=== PATIENT | female | born 1965 | race Caucasian/White ===

== ENCOUNTER 2017-06-03 06:31 | Inpatient (IN) | payer MEDICARE, MEDICAID ==
[~2017-06-03] VITALS: Ht 172.7 cm; Wt 58.0 kg
[~2017-06-03 06:31] MED LIST: APLISOL ID; BETH25TA3 PO; DIAZ5 PO; DRON2.5 PO; FLORASTOR PO; LAMO25 PO; LYRI150C PO; METR-1 PO; PREV30CA36 PO; PROM25SU8 PO; QUET1TAB66 PO; TOPI100 PO; TOPI200 PO; TRAM50 PO; [UNRECOGNIZED DRUG - CODE] PO
[2017-06-03 06:32] VITALS: BP 152/73; PULSE 150; RESP 18; TEMP 100.1; O2SAT 98
[2017-06-03 06:38] VITALS: BP 115/83; PULSE 123; RESP 18; O2SAT 98
[2017-06-03] MEDS ORDERED: ONDANSETRON HCL 4 MG/2 ML VIAL IV ONE (07:00)
[2017-06-03] MEDS ORDERED: SODIUM CHLOR 0.9% 1000 ML INJ 1,000 ML IV ONE ×2 (07:00→08:45)
--- NOTE | 2017-06-03 07:18 | PD ---
HPI Chief Complaint: GI Complaint Time Seen by Provider: 06:39 Travel History International Travel<30 days: No Contact w/Intl Traveler<30days: No Traveled to known affect area: No History of Present Illness HPI The patient is a 52 year old female who presents to the [facility] emergency department with a history of abdominal pain worse in the left upper and left lower quadrant of the abdomen that began 2 months ago. The patient reports that it has been associated with diarrhea that was originally 3-4 times per day, however now the diarrhea is at hourly. She has a history of Crohn's disease. She was diagnosed 10 years ago. The patient reports that she's been to [facility] twice for these symptoms as she lives in [place], [place]. However she reports that her GI doctor does not go to that facility , therefore she was discharged home to follow-up with her GI specialist. She reports that she's been on TPN for the last 2 months without improvement. She reports that she was previously on Remicade, however it was not helping. Her last dose of Remicade was 2 months ago. [facility] wanted to discharge the patient home on steroids, however she reports that the type of steroid was too expensive. The patient reports that at this point she would like a second opinion from another reinstatement clerk. She reports that she's having nausea vomiting approximate 3 times per day. She reports that she is using IV Zofran and Phenergan. She reports that she has a doctor visit her at home for her primary care physician. She reports that she also has home health coming out to assist her. She reports that she has had over the last couple of weeks dysuria with urinary frequency and urgency. She reports that she has had C. difficile in the past, however her last test in the hospital was negative for C. difficile. The patient reports that she's been lightheaded and having syncopal events, however she has not harmed herself. She reports that she's had subjective fevers at home. The patient arrives with a temp of 100.1. On review of systems otherwise, the patient denies having any cough, congestion, neck pain, chest pain, shortness of breath, one-sided weakness, slurred speech, facial droop, difficulty with word finding ability, numbness or tingling to her extremities. LMP: Status post hysterectomy PFSH Past Medical History Narrative Medical The patient's past medical history is significant for Crohn's disease, bipolar disorder, seizure disorder, arthritis, chronic neck and back pain, migraine headaches. Arthritis: Yes Asthma: Yes Blood Disorders: No Bipolar Disorder: Yes Anxiety: Yes Depression: Yes Cancer: Yes (CERVICAL CANCER) Cardiovascular Problems: No Chemotherapy: No COPD: No Cerebrovascular Accident: No Diabetes: No Diminished Hearing: No Endocrine: No Gastrointestinal Disorders: Yes (H/O C-diff, clostridium perfringens, colitis, bladder d/o, chrohns) GERD: Yes Genitourinary: No Headaches: Yes Hepatitis: No Hiatal Hernia: No Immune Disorder: No Kidney Stones: No Musculoskeletal: Yes (Osteoperosis) Neurologic: Yes Psychiatric: Yes Reproductive: No Respiratory: Yes Migraines: No Radiation Therapy: No Renal Failure: No Seizures: Yes Sickle Cell Disease: No Sleep Apnea: No Thyroid Disease: No ?: Not Past Surgical History Narrative Surgical The patient's past surgical history is significant for multiple laparoscopies related to chronic pelvic pain, appendectomy, cholecystectomy, tonsillectomy, breast reduction. Abdominal Surgery: No AICD: No Appendectomy: No Arteriovenous Shunt: No Cardiac Surgery: No Cholecystectomy: Yes Ear Surgery: No Eye Surgery: No Genitourinary Surgery: No Gynecologic Surgery: Yes Hysterectomy: Yes (2006) Insulin Pump: No Joint Replacement: No Neurologic Surgery: Yes Oral Surgery: No Pacemaker: No Thoracic Surgery: No Tonsillectomy: Yes (CHILDHOOD) Other Surgery: Yes (BREAST REDUCTION 1999) Social History Alcohol Use: No Tobacco Use: No Substance Use: No Allergies-Medications (Allergen,Severity, Reaction): Coded Allergies: aspirin (Unverified Allergy, Severe, "ANAPHYLAXIS", 01/07/17) bupropion (Unverified Allergy, Severe, Seizures, 01/07/17) ibuprofen (Unverified Allergy, Severe, "ANAPHYLAXIS", 01/07/17) iodine (Unverified Allergy, Severe, "ANAPHYLAXIS", 01/07/17) potassium iodide (Unverified Allergy, Severe, "ANAPHYLAXIS", 01/07/17) povidone-iodine (Unverified Allergy, Severe, "ANAPHYLAXIS", 01/07/17) sodium iodide (Unverified Allergy, Severe, "ANAPHYLAXIS", 01/07/17) sodium iodide (Unverified Allergy, Severe, "ANAPHYLAXIS", 01/07/17) sumatriptan (Unverified Allergy, Severe, "ANAPHYLAXIS", 01/07/17) warfarin (Unverified Allergy, Severe, "ANAPHYLAXIS", 01/07/17) Uncoded Allergies: ALL FISH (Allergy, Severe, Anaphylaxis, 05/07/07) Reported Meds & Prescriptions Reported Meds & Active Scripts Active Ultram (Tramadol HCl) 50 Mg Tab 1 Tab PO Q6HPRN Flagyl (Metronidazole) 500 Mg Tab 1 Tab PO QID Reported Valium (Diazepam) 5 Mg Tab 5 Mg PO BID Prevacid (Lansoprazole) 30 Mg Capcr 30 Mg PO DAILY Lamictal (Lamotrigine) 25 Mg Tab 25 Mg PO TID Lyrica (Pregabalin) 150 Mg Cap 150 Mg PO BID Topamax (Topiramate) 200 Mg Tab 200 Mg PO HS Topamax (Topiramate) 100 Mg Tab 150 Mg PO DAILY Seroquel (Quetiapine Fumarate) 300 Mg Tab 400 Mg PO HS Marinol (Dronabinol) 2.5 Mg Cap 2.5 Mg PO DAILY Urecholine (Bethanechol Chloride) 25 Mg Tab 25 Mg PO TID [florastor] 250 Mg PO BID Ultram (Tramadol HCl) 50 Mg Tab 50 Mg PO Q8 FOR PAIN Avinza (Morphine Sulfate) 60 Mg Cap 60 Mg PO DAILY Phenergan (Promethazine HCl) 25 Mg Tab 25 Mg PO TIDPRN FOR NAUSEA/VOMITING [aplisol] 0.1 Ml ID YEARLY Review of Systems Except as stated in HPI: all other systems reviewed are Neg General / Constitutional: Positive: Fever Eyes: No: Visual changes HENT: No: Headaches, Congestion, Neck Stiffness Cardiovascular: Positive: Tachycardia, Syncope, No: Chest Pain or Discomfort Respiratory: No: Cough, Shortness of Breath Gastrointestinal: Positive: Nausea, Vomiting, Diarrhea, Abdominal Pain, Changes in Bowel Habits, Indigestion, No: Hematemesis, Hematochezia, Loss of Appetite Genitourinary: No: Dysuria Musculoskeletal: No: Pain Skin: No Rash Neurologic: No: Weakness, Focal Abnormalities, Coordination Problem, Change in Mentation, Slurred Speech, Sensory Disturbance Psychiatric: No: Depression Endocrine: No: Polydipsia Hematologic/Lymphatic: No: Easy Bruising Physical Exam Narrative General: The patient is a well-developed well-nourished female in no acute distress. Head and Neck exam: Head is normocephalic atraumatic. Eyes: EOMI, pupils are equal round and reactive to light. Nose: Midline septum with pink mucous membranes Mouth: Dentition unremarkable. Moist mucus membranes. Posterior oropharynx is not erythematous. No tonsillar hypertrophy. Uvula midline. Airway patent. Neck: No palpable lymphadenopathy. No nuchal rigidity. No thyromegaly. Cardiovascular: Sinus tachycardia in the 1 teens to 120s without murmurs, gallops, or rubs. No pulse deficit to the extremities on simultaneous auscultation and palpation of her radial artery. Lungs: Clear to auscultation bilaterally. No wheezes, rhonchi, or rales. Abdomen: Soft, with tenderness on palpation of the left upper and left lower quadrant of the abdomen. The patient additionally reports minimal discomfort on palpation of the right upper and right lower quadrant of the abdomen. No tenderness specifically over McBurney's point. No guarding, rebound, or rigidity. Negative Barens's sign. Normal bowel sounds are audible. Extremities: No clubbing, cyanosis, or edema. 2+ pulses in all 4 extremities. No calf tenderness on palpation. Back: No spinous process tenderness to palpation. Bilateral CVA tenderness is reported. Neurologic Exam: Grossly nonfocal. Skin Exam: No rash noted. Intact skin that is warm and dry. Data Data Last Documented VS Vital Signs Date Time Temp Pulse Resp B/P (MAP) Pulse Ox O2 Delivery O2 Flow Rate FiO2 06/03/17 06:38 123 18 115/83 (94) 98 06/03/17 06:32 100.1 Room Air Orders Orders Electrocardiogram (06/03/17 06:51) Complete Blood Count With Diff (06/03/17 06:51) Comprehensive Metabolic Panel (06/03/17 06:51) Prothrombin Time / Inr (Pt) (06/03/17 06:51) Act Partial Throm Time (Ptt) (06/03/17 06:51) Blood Culture (06/03/17 06:51) C-Reactive Protein (Crp) (06/03/17 06:51) Lipase (06/03/17 06:51) Urinalysis - C+S If Indicated (06/03/17 06:51) Westergren Sedimentation Rate (06/03/17 06:51) Magnesium (Mg) (06/03/17 06:51) Enteric Path (Stool) (06/03/17 06:51) C Diff Toxin Pcr (06/03/17 06:51) Chest, Single Ap (06/03/17 06:51) Iv Access Insert/Monitor (06/03/17 06:51) Ecg Monitoring (06/03/17 06:51) Oximetry (06/03/17 06:51) Stool Wbc (Leukocytes) (06/03/17 06:51) Lactic Acid Sepsis Protocol (06/03/17 06:51) Sodium Chlor 0.9% 1000 Ml Inj (Ns 1000 M (06/03/17 07:00) Ondansetron Inj (Zofran Inj) (06/03/17 07:00) MDM Medical Decision Making Medical Screen Exam Complete: Yes Emergency Medical Condition: Yes Medical Record Reviewed: Yes Differential Diagnosis Crohn's exacerbation, dehydration, versus electrolyte derangements, versus sepsis, versus pancreatitis Narrative Course During the course of the patients emergency department visit, the patients history, examination, and differential diagnosis were reviewed with the patient. The patient was placed on a softball umpire with oximetry and frequent blood pressure monitoring. The patient had IV access obtained and blood work sent for analysis. Blood cultures 2 were ordered. A lactic acid is ordered. The patient reports that she recently had a CT scan of the abdomen and pelvis done within the last 2 weeks at [facility] when she was admitted. The records will be obtained from this facility. The patient was initially provided normal saline 1 L IV fluid bolus, Zofran 4 mg IV. The patients laboratory studies and imaging studies are pending at the conclusion of my shift. The patient's case will be checked out to the oncoming emergency physician to disposition the patient based on the conclusion of the patient's workup. Sepsis Criteria SIRS Criteria (2 or more): Heart rate over 90 Diagnosis Primary Impression: Abdominal pain Qualified Codes: R10.84 - Generalized abdominal pain Additional Impression: History of Crohn's disease Renea Marcos MD Jun 03, 2017 07:18
--- NOTE | 2017-06-03 07:26 | RADRPT ---
EXAM DATE/TIME: 06/03/2017 07:11 [facility] COMPARISON: No previous studies available for comparison. INDICATIONS : Vomiting, diarrhea, nausea, weakness x1 month. MEDICAL HISTORY : None. SURGICAL HISTORY : None. ENCOUNTER: Initial ACUITY: 1 month PAIN SCORE: 3/10 LOCATION: Bilateral chest FINDINGS: Portable AP view of the chest demonstrates a normal-sized cardiac silhouette. Right upper extremity P ICC distal tip is in the SVC. Bilateral nipple piercings are present. No effusion, consolidation, or pneumothorax is identified. The bones and soft tissues demonstrate no acute finding. Cervical spine h ardware is present. CONCLUSION: No acute cardiopulmonary abnormality is identified. Nicholas Mayo MD on June 03, 2017 at 7:19 Board Certified Radiologist. This report was verified electronically.
[2017-06-03 08:09] LABS: AUTOMATED NEUTROPHIL # 11.1 TH/MM3 (1.8-7.7); BASOPHIL # 0.1 TH/MM3 (0-0.2); BASOPHIL % 0.4 % (0.0-2.0); EOSINOPHIL % 0.1 % (0.0-4.0); HEMATOCRIT 46.2 % (35.0-46.0); HEMOGLOBIN 15.6 GM/DL (11.6-15.3); LYMPH % 21.1 % (9.0-44.0); LYMPHOCYTE # 3.1 TH/MM3 (1.0-4.8); MEAN CELL VOLUME 93.6 FL (80.0-100.0); MEAN CORPUSCULAR HEMOGLOBIN 31.6 PG (27.0-34.0); MEAN CORPUSCULAR HGB CONC 33.8 % (32.0-36.0); MEAN PLATELET VOLUME 9.8 FL (7.0-11.0); MONO % 3.6 % (0.0-8.0); MONOCYTE # 0.5 TH/MM3 (0-0.9); NEUT % 74.8 % (16.0-70.0); PLATELET COUNT 342 TH/MM3 (150-450); RED BLOOD COUNT 4.94 MIL/MM3 (4.00-5.30); RED CELL DISTRIBUTION WIDTH 13.3 % (11.6-17.2); WHITE BLOOD COUNT 14.9 TH/MM3 (4.0-11.0)
[2017-06-03 08:17] LABS: PROTHROMBIN TIME - PATIENT 10.3 SEC (9.8-11.6)
[2017-06-03 08:29] LABS: ALBUMIN 4.9 GM/DL (3.4-5.0); AST (GOT) 33 U/L (15-37); BICARBONATE 22.2 MEQ/L (21.0-32.0); BLOOD UREA NITROGEN 29 MG/DL (7-18); CALCIUM 10.5 MG/DL (8.5-10.1); CHLORIDE 99 MEQ/L (98-107); CREATININE 1.49 MG/DL (0.50-1.00); GLOMERULAR FILTRATION RATE 37 ML/MIN (>89); GLUCOSE,RANDOM 113 MG/DL (74-106); LIPASE 252 U/L (73-393); MAGNESIUM 2.3 MG/DL (1.5-2.5); SODIUM (NA) 136 MEQ/L (136-145)
[2017-06-03 08:33] LABS: ALKALINE PHOSPHATASE 93 U/L (45-117); ALT (GPT) 51 U/L (10-53); C-REACTIVE PROTEIN LESS THAN 0.29 MG/DL (0.00-0.30); TOTAL BILIRUBIN ADULT 0.4 MG/DL (0.2-1.0)
[2017-06-03 08:52] LABS: LACTIC ACID SEPSIS PROTOCOL 4.4 mmol/L (0.4-2.0)
[2017-06-03] MEDS ORDERED: PIPERACIL-TAZO 4.5 GM PREMIX 100 ML IV STA (08:52)
[2017-06-03] MEDS ORDERED: VANCOMYCIN INJ 1,000 MG in SODIUM CHLOR 0.9% 250 ML INJ 250 ML IV STA (08:52)
[2017-06-03] MEDS ORDERED: SODIUM CHLORID 0.9% 500 ML INJ 500 ML IV ONE (09:00)
--- NOTE | 2017-06-03 11:18 | RADRPT ---
EXAM DATE/TIME: 06/03/2017 10:58 [facility] COMPARISON: No previous studies available for comparison. INDICATIONS : Abdominal pain. Diarrhea. ORAL CONTRAST: No oral contrast ingested. RADIATION DOSE: 5.08 CTDIvol (mGy) MEDICAL HISTORY : Seizures. Crohns disease. SURGICAL HISTORY : Cholecystectomy. Hysterectomy.Cervical cancer ENCOUNTER: Initial ACUITY: 1 day PAIN SCALE: 8/10 LOCATION: lower quadrant Abdomen TECHNIQUE: Volumetric scanning of the abdomen and pelvis was performed. Using automated exposure control and ad justment of the mA and/or kV according to patient size, radiation dose was kept as low as reasonably achievable to obtain optimal diagnostic quality images. DICOM format image data is available electro nically for review and comparison. FINDINGS: LOWER LUNGS: The visualized lower lungs are clear. Minimal pericardial fluid. LIVER: Homogeneous density without lesion. There is no dilation of the biliary tree. No calcified gallston es. SPLEEN: Normal size without lesion. PANCREAS: Within normal limits. KIDNEYS: Miniscule nonobstructing stone in the mid to lower pole collecting system of the right kidney. Left k idney is unremarkable. ADRENAL GLANDS: Within normal limits. VASCULAR: There is no aortic aneurysm. BOWEL/MESENTERY: Mild nonspecific fluid and gaseous distention of the stomach and bowel, mainly proximal without defin ite abnormal wall thickening or inflammatory change. No free fluid. ABDOMINAL WALL: Within normal limits. RETROPERITONEUM: There is no lymphadenopathy. BLADDER: No wall thickening or mass. REPRODUCTIVE: Uterus surgically absent. No evidence of pelvic mass or free fluid. INGUINAL: There is no lymphadenopathy or hernia. MUSCULOSKELETAL: Within normal limits for patient age. CONCLUSION: Mild nonspecific fluid and gaseous distention of bowel. Tiny nonobstructing right kidney stone. Nicholas Weeks MD on June 03, 2017 at 11:05 Board Certified Radiologist. This report was verified electronically.
--- NOTE | 2017-06-03 11:26 | PD ---
Physical Exam Narrative GENERAL: Well-nourished, well-developed patient. Uncomfortable SKIN: Warm and dry. HEAD: Normocephalic EYES: No injection or drainage. ENT: No nasal drainage noted. NECK: Supple, trachea midline. CARDIOVASCULAR: Regular rate and rhythm RESPIRATORY: No increased effort. No accessory muscle use. NEUROLOGICAL: Awake and alert. Moves extremities and sensory grossly within normal limits. Normal speech. Data Data Last Documented VS Vital Signs Date Time Temp Pulse Resp B/P (MAP) Pulse Ox O2 Delivery O2 Flow Rate FiO2 06/03/17 06:38 123 18 115/83 (94) 98 06/03/17 06:32 100.1 Room Air Orders Orders Electrocardiogram (06/03/17 06:51) Complete Blood Count With Diff (06/03/17 06:51) Comprehensive Metabolic Panel (06/03/17 06:51) Prothrombin Time / Inr (Pt) (06/03/17 06:51) Act Partial Throm Time (Ptt) (06/03/17 06:51) Blood Culture (06/03/17 06:51) C-Reactive Protein (Crp) (06/03/17 06:51) Lipase (06/03/17 06:51) Urinalysis - C+S If Indicated (06/03/17 06:51) Westergren Sedimentation Rate (06/03/17 06:51) Magnesium (Mg) (06/03/17 06:51) Enteric Path (Stool) (06/03/17 06:51) C Diff Toxin Pcr (06/03/17 06:51) Chest, Single Ap (06/03/17 06:51) Iv Access Insert/Monitor (06/03/17 06:51) Ecg Monitoring (06/03/17 06:51) Oximetry (06/03/17 06:51) Stool Wbc (Leukocytes) (06/03/17 06:51) Lactic Acid Sepsis Protocol (06/03/17 06:51) Sodium Chlor 0.9% 1000 Ml Inj (Ns 1000 M (06/03/17 07:00) Ondansetron Inj (Zofran Inj) (06/03/17 07:00) Sodium Chlor 0.9% 1000 Ml Inj (Ns 1000 M (06/03/17 08:45) Vancomycin Inj (Vancomycin Inj) (06/03/17 08:52) Piperacil-Tazo 4.5 Gm Premix (Zosyn 4.5 (06/03/17 08:52) Sodium Chlorid 0.9% 500 Ml Inj (Ns 500 M (06/03/17 09:00) Sodium Chlor 0.9% 1000 Ml Inj (Ns 1000 M (06/03/17 10:00) Admit To Inpatient (06/03/17 ) Inpatient Certification (06/03/17 ) Activity Bed Rest With Brp (06/03/17 09:41) Diet Npo Except Meds (06/03/17 Breakfast) Admit Order (Ed Use Only) (06/03/17 09:50) Ct Abd/Pel W/O Iv Contrast (06/03/17 ) Labs Laboratory Tests Test 06/03/17 07:50 White Blood Count 14.9 TH/MM3 Red Blood Count 4.94 MIL/MM3 Hemoglobin 15.6 GM/DL Hematocrit 46.2 % Mean Corpuscular Volume 93.6 FL Mean Corpuscular Hemoglobin 31.6 PG Mean Corpuscular Hemoglobin Concent 33.8 % Red Cell Distribution Width 13.3 % Platelet Count 342 TH/MM3 Mean Platelet Volume 9.8 FL Neutrophils (%) (Auto) 74.8 % Lymphocytes (%) (Auto) 21.1 % Monocytes (%) (Auto) 3.6 % Eosinophils (%) (Auto) 0.1 % Basophils (%) (Auto) 0.4 % Neutrophils # (Auto) 11.1 TH/MM3 Lymphocytes # (Auto) 3.1 TH/MM3 Monocytes # (Auto) 0.5 TH/MM3 Eosinophils # (Auto) 0.0 TH/MM3 Basophils # (Auto) 0.1 TH/MM3 CBC Comment DIFF FINAL Differential Comment Erythrocyte Sedimentation Rate 12 mm/hr Prothrombin Time 10.3 SEC Prothromb Time International Ratio 1.0 RATIO Activated Partial Thromboplast Time 26.8 SEC Stool C. difficile Toxin (PCR) NEGATIVE Stl C. difficile Toxin Epiderm 027 PRESUMPTIVE NEGATIVE Blood Urea Nitrogen 29 MG/DL Creatinine 1.49 MG/DL Random Glucose 113 MG/DL Total Protein 10.0 GM/DL Albumin 4.9 GM/DL Calcium Level 10.5 MG/DL Magnesium Level 2.3 MG/DL Alkaline Phosphatase 93 U/L Aspartate Amino Transf (AST/SGOT) 33 U/L Alanine Aminotransferase (ALT/SGPT) 51 U/L Total Bilirubin 0.4 MG/DL Sodium Level 136 MEQ/L Potassium Level 3.9 MEQ/L Chloride Level 99 MEQ/L Carbon Dioxide Level 22.2 MEQ/L Anion Gap 15 MEQ/L Estimat Glomerular Filtration Rate 37 ML/MIN Lactic Acid Level 4.4 mmol/L C-Reactive Protein LESS THAN 0.29 MG/DL Lipase 252 U/L [facility] Supervised Visit with EDWARD: No Interpretation(s) CBC & BMP Diagram 06/03/17 07:50 Total Protein 10.0 H, Albumin 4.9, Calcium Level 10.5 H, Magnesium Level 2.3, Alkaline Phosphatase 93, Aspartate Amino Transf (AST/SGOT) 33, Alanine Aminotransferase (ALT/SGPT) 51, Total Bilirubin 0.4 Last 24 hours Impressions Chest X-Ray 06/03/17 0651 Signed Impressions: Service Date/Time: Saturday, June 03, 2017 07:11 - CONCLUSION: No acute cardiopulmonary abnormality is identified. Nicholas Mayo MD CT shows no abscess Narrative Course Signed over to me to follow workup and admit. Workup shows sepsis given her leukocytosis, fever, tachycardia, elevated lactate. She was given broad- spectrum coverage with Zosyn and vancomycin. She'll be admitted to the hospital for further care. She agrees to admission, patient has had no signs of hypotension and responded to IV fluids with improvement tachycardia. We'll monitor closely in the hospital Sepsis Criteria SIRS Criteria (2 or more): Heart rate over 90, WBC > 91326, < 4000 or > 10% bands Sepsis Criteria (SIRS+source): Infect source susp/known Severe Sepsis (+one): Lactate >2 Septic Shock Criteria: Lactic acid >=4 Criteria Outcome: Meets septic shock criteria Physician Communication Physician Communication Dr. dallas agrees to admission Diagnosis Primary Impression: Sepsis Qualified Codes: A41.9 - Sepsis, unspecified organism Additional Impressions: Abdominal pain Qualified Codes: R10.84 - Generalized abdominal pain History of Crohn's disease Renal insufficiency Admitting Information Admitting Physician Requests: Admit Gris Reyes MD Jun 03, 2017 11:26
[2017-06-03] MEDS: SODIUM CHLOR 0.9% 1000 ML INJ 1,000 ML IV SCH ×2 (12:06→18:52)
[2017-06-03 12:14] VITALS: BP 147/81; PULSE 99; RESP 16; O2SAT 100
[2017-06-03] MEDS ORDERED: PANTOPRAZOLE SODIUM 40 MG VIAL IV PUSH SCH (15:00)
--- NOTE | 2017-06-03 15:46 | EKG ---
Date Performed: 06/03/2017 Time Performed: 08:05:05 PTAGE: 52 years EKG: Sinus tachyardia Nonspecific ST-T wave changes ABNORMAL RHYTHM ECG NO PREVIOUS TRACING DOCTOR: Stephen Salomon Interpretating Date/Time 06/03/2017 15:46:07
[2017-06-03 16:00] VITALS: BP 119/62; PULSE 90; RESP 18; TEMP 98; O2SAT 98
[2017-06-03] MEDS ORDERED: ONDANSETRON HCL 4 MG/2 ML VIAL IV PUSH PRN (16:15)
--- NOTE | 2017-06-03 16:35 | HHI.HP ---
HPI Service [facility] Primary Care Physician Unknown Admission Diagnosis sepsis, abdominal pain Diagnoses: (1) Sepsis Diagnosis: Principal (2) Acute kidney injury Diagnosis: Principal (3) Exacerbation of Crohn's disease Diagnosis: Principal Travel History International Travel<30 Days: No Contact w/Intl Traveler <30 Da: No Traveled to Known Affected Are: No Sepsis Criteria SIRS Criteria (2 or more): Heart rate over 90 Sepsis Criteria (SIRS+source): Infect source susp/known Severe Sepsis (+one): Lactate >2 Multiple Organ Dysfunction Syn: Evidence -2 organs failing Criteria Outcome: Meets severe sepsis criteria History of Present Illness Patient is a 52-year-old female with an extensive GI history of known Crohn's disease, GERD, history of seizure disorder last seizure episode was about more than 4 weeks ago, 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 History of bipolar disorder. came in because of GI symptoms. Patient states that for the past couple of months now since March patient has been having exacerbation of her Crohn's disease. She has workup done with GI specialist and actually had a port placed on the left chest wall sometime in March 2017 for TPN which was removed because it got infected. Another PICC line was placed in then for TPN. She has been getting TPN for nutrition. She has been undergoing treatment for Crohn's disease with Remicade and was discontinued last February by her GI specialist as she was told that it is not working. In the interim from February 24 this time patient had been admitted twice in [facility] in [place] for hydration and symptomatic management. Intermittently she was placed on steroids however patient states that she doesn' t do well with it because of her bipolar disorder. Patient states that her pain comes in cycles and she is actually very compliant with her pain medications of MS Contin 60 twice a day, hydrocodone, and fentanyl 100 g every 3 days. However for the past few days has been unable to hold down any medications because of pain and nausea. Denies any fever at home but on evaluation here had a temperature. And was tachycardic Per patient she was due for an EGD colonoscopy this coming July 2017. Patient states also history of DVT 21 involving the right lower extremity and one on the right upper extremity which sounds like PICC line related. She is on Xarelto 20 mg daily. Patient came here today because of ongoing GI symptoms. Generalized weakness and dehydration. Review of Systems Constitutional: COMPLAINS OF: Weight loss Endocrine: DENIES: Abnorml menstrual pattern, Heat/cold intolerance, Polydipsia , Polyuria, Polyphagia Eyes: DENIES: Blurred vision, Diplopia, Eye inflammation, Eye pain, Vision loss , Photosensitivity, Double Vision Ears, nose, mouth, throat: DENIES: Tinnitus, Hearing loss, Vertigo, Nasal discharge, Oral lesions, Throat pain, Hoarseness, Ear Pain, Running Nose, Epistaxis, Sinus Pain, Toothache, Odynophagia Respiratory: DENIES: Apneas, Cough, Snoring, Wheezing, Hemoptysis, Sputum production, Shortness of breath Cardiovascular: DENIES: Chest pain, Palpitations, Syncope, Dyspnea on Exertion , PND, Lower Extremity Edema, Orthopnea, Claudication Gastrointestinal: COMPLAINS OF: Abdominal pain, Diarrhea, Nausea, Vomiting Genitourinary: DENIES: Abnormal vaginal bleeding, Dysmenorrhea, Dyspareunia, Sexual dysfunction, Urinary frequency, Urinary incontinence, Urgency, Hematuria , Dysuria, Nocturia, Vaginal discharge Musculoskeletal: COMPLAINS OF: Joint pain, Back pain Integumentary: DENIES: Abnormal pigmentation, Pruritus, Rash, Nail changes, Breast masses, Breast skin changes, Nipple discharge Hematologic/lymphatic: DENIES: Bruising, Lymphadenopathy Immunologic/allergic: DENIES: Eczema, Urticaria Neurologic: DENIES: Abnormal gait, Headache, Localized weakness, Paresthesias, Seizures, Speech Problems, Tremor, Poor Balance Psychiatric: COMPLAINS OF: Mood changes Past Family Social History Past Medical History Bipolar disorder Crohn's disease Rheumatoid arthritis/osteoarthritis Chronic pain History of seizure disorder History of DVT Past Surgical History Port placement on the left side of the chest was removed March 2017 because of infection. Hysterectomy secondary to fibroids Appendectomy Cholecystectomy Cervical laminectomy/fusion surgery Reported Medications About the 90 mg daily Seroquel 200 mg daily Topamax 200 mg twice a Promethazine every 4-6 hours when necessary IV Diazepam 5 mg twice a Creon 36,000 units 4 times a week a Hydrocodone 10/325 every 4 hours when necessary Ventilating 1 puff 4 times a day Albuterol nebulizers 3 times a day Tylenol when necessary Dronabinol 10 mg daily Xarelto 20 mg daily MS Contin 60 mg daily Remicade 10 mg/kg IV Bethanechol 25 mg 4 times a day Vitamin D3 TPN Allergies: Coded Allergies: aspirin (Unverified Allergy, Severe, "ANAPHYLAXIS", 01/07/17) bupropion (Unverified Allergy, Severe, Seizures, 01/07/17) ibuprofen (Unverified Allergy, Severe, "ANAPHYLAXIS", 01/07/17) iodine (Unverified Allergy, Severe, "ANAPHYLAXIS", 01/07/17) potassium iodide (Unverified Allergy, Severe, "ANAPHYLAXIS", 01/07/17) povidone-iodine (Unverified Allergy, Severe, "ANAPHYLAXIS", 01/07/17) sodium iodide (Unverified Allergy, Severe, "ANAPHYLAXIS", 01/07/17) sodium iodide (Unverified Allergy, Severe, "ANAPHYLAXIS", 01/07/17) sumatriptan (Unverified Allergy, Severe, "ANAPHYLAXIS", 01/07/17) warfarin (Unverified Allergy, Severe, "ANAPHYLAXIS", 01/07/17) Uncoded Allergies: ALL FISH (Allergy, Severe, Anaphylaxis, 05/07/07) Family History Noncontributory Social History Denies alcohol or substance abuse History of smoking a pack a day quit a month ago Denies IV drug use Physical Exam Vital Signs Vital Signs Date Time Temp Pulse Resp B/P (MAP) Pulse Ox O2 Delivery O2 Flow Rate FiO2 06/03/17 12:14 99 16 147/81 (103) 100 Room Air 06/03/17 06:38 123 18 115/83 (94) 98 06/03/17 06:32 100.1 150 18 152/73 (99) 98 Room Air Physical Exam GENERAL: Appears dehydrated, in no apparent distress. SKIN: No rashes, ecchymoses or lesions. Cool and dry. HEAD: Atraumatic. Normocephalic. No temporal or scalp tenderness. EYES: Pupils equal round and reactive. Extraocular motions intact. No scleral icterus. No injection or drainage. ENT: Nose without bleeding, purulent drainage or septal hematoma. very dry oral mucosa NECK: Trachea midline. No JVD or lymphadenopathy. Supple, nontender, no meningeal signs. CARDIOVASCULAR: Regular rate and rhythm without murmurs, gallops, or rubs. Left chest wall with well-healed previous port site RESPIRATORY: Clear to auscultation. Breath sounds equal bilaterally. No wheezes , rales, or rhonchi. GASTROINTESTINAL: Abdomen soft, tenderness on the palpation of the periumbilical area. MUSCULOSKELETAL: Extremities without clubbing, cyanosis, or edema. No joint tenderness, effusion, or edema noted. No calf tenderness. Negative Homans sign bilaterally. Moves all extremities spontaneously no joint swelling PICC line in place in the right upper extremity NEUROLOGICAL: Awake and alert. Cranial nerves II through XII intact. Motor and sensory grossly within normal limits. Five out of 5 muscle strength in all muscle groups. Normal speech. Laboratory Laboratory Tests Test 06/03/17 07:50 White Blood Count 14.9 Red Blood Count 4.94 Hemoglobin 15.6 Hematocrit 46.2 Mean Corpuscular Volume 93.6 Mean Corpuscular Hemoglobin 31.6 Mean Corpuscular Hemoglobin Concent 33.8 Red Cell Distribution Width 13.3 Platelet Count 342 Mean Platelet Volume 9.8 Neutrophils (%) (Auto) 74.8 Lymphocytes (%) (Auto) 21.1 Monocytes (%) (Auto) 3.6 Eosinophils (%) (Auto) 0.1 Basophils (%) (Auto) 0.4 Neutrophils # (Auto) 11.1 Lymphocytes # (Auto) 3.1 Monocytes # (Auto) 0.5 Eosinophils # (Auto) 0.0 Basophils # (Auto) 0.1 CBC Comment DIFF FINAL Differential Comment Erythrocyte Sedimentation Rate 12 Prothrombin Time 10.3 Prothromb Time International Ratio 1.0 Activated Partial Thromboplast Time 26.8 Stool C. difficile Toxin (PCR) NEGATIVE Stl C. difficile Toxin Epiderm 027 PRESUMPTIVE NEGATIVE Blood Urea Nitrogen 29 Creatinine 1.49 Random Glucose 113 Total Protein 10.0 Albumin 4.9 Calcium Level 10.5 Magnesium Level 2.3 Alkaline Phosphatase 93 Aspartate Amino Transf (AST/SGOT) 33 Alanine Aminotransferase (ALT/SGPT) 51 Total Bilirubin 0.4 Sodium Level 136 Potassium Level 3.9 Chloride Level 99 Carbon Dioxide Level 22.2 Anion Gap 15 Estimat Glomerular Filtration Rate 37 Lactic Acid Level 4.4 C-Reactive Protein LESS THAN 0.29 Lipase 252 Date/Time Source Procedure Growth Status 06/03/17 07:50 Blood Peripheral Aerobic Blood Culture Pending Received 06/03/17 07:50 Blood Peripheral Anaerobic Blood Culture Pending Received 06/03/17 07:50 Stool Stool - Final NO ENTERIC PATHOGENS DETECTED BY PCR... Complete Result Diagram: 06/03/17 0750 06/03/17 0750 Imaging Last Impressions Chest X-Ray 06/03/17 0651 Signed Impressions: Service Date/Time: Saturday, June 03, 2017 07:11 - CONCLUSION: No acute cardiopulmonary abnormality is identified. Nicholas Mayo MD Abdomen/Pelvis CT 06/03/17 0000 Signed Impressions: Service Date/Time: Saturday, June 03, 2017 10:58 - CONCLUSION: Mild nonspecific fluid and gaseous distention of bowel. Tiny nonobstructing right kidney stone. MD Jessica Alonso VTE Risk Assessment Jessica VTE Risk Assessment: Mod/High Risk (score >= 2) Caprini Risk Assessment Model Point Value = 1 Point Value = 2 Point Value = 3 Point Value = 5 Age 41-60 Minor surgery BMI > 25 kg/m2 Swollen legs Varicose veins or History of unexplained or recurrent spontaneous Oral contraceptives or hormone replacement Sepsis (< 1 month) Serious lung disease, including pneumonia (< 1 month) Abnormal pulmonary function Acute myocardial infarction Congestive heart failure (< 1 month) History of inflammatory bowel disease Medical patient at bed rest Age 61-74 Arthroscopic surgery Major open surgery (> 45 min) Laparoscopic surgery (> 45 min) Malignancy Confined to bed (> 72 hours) Immobilizing plaster cast Central venous access Age >= 75 History of VTE Family history of VTE Factor V Leiden Prothrombin [id number] Lupus anticoagulant Anticardiolipin antibodies Elevated serum homocysteine Heparin-induced thrombocytopenia Other congenital or acquired thrombophilia Stroke (< 1 month) Elective arthroplasty Hip, pelvis, or leg fracture Acute spinal cord injury (< 1 month) Prophylaxis Regimen Total Risk Factor Score Risk Level Prophylaxis Regimen 0-1 Low Early ambulation 2 Moderate Order ONE of the following: *Sequential Compression Device (SCD) *Heparin 5000 units SQ BID 3-4 Higher Order ONE of the following medications: *Heparin 5000 units SQ TID *Enoxaparin/Lovenox 40 mg SQ daily (WT < 150 kg, CrCl > 30 mL/min) *Enoxaparin/Lovenox 30 mg SQ daily (WT < 150 kg, CrCl > 10-29 mL/min) *Enoxaparin/Lovenox 30 mg SQ BID (WT < 150 kg, CrCl > 30 mL/min) AND/OR *Sequential Compression Device (SCD) 5 or more Highest Order ONE of the following medications: *Heparin 5000 units SQ TID (Preferred with Epidurals) *Enoxaparin/Lovenox 40 mg SQ daily (WT < 150 kg, CrCl > 30 mL/min) *Enoxaparin/Lovenox 30 mg SQ daily (WT < 150 kg, CrCl > 10-29 mL/min) *Enoxaparin/Lovenox 30 mg SQ BID (WT < 150 kg, CrCl > 30 mL/min) AND *Sequential Compression Device (SCD) Assessment and Plan Assessment and Plan 52-year-old female presenting with chronic abdominal pain nausea or vomiting with history of Crohn's disease presenting with fever, tachcardic, elevated lactic acid level Severe sepsis from Crohn's disease exacerbation compounded by dehydration Lactic acidosis CT scan reviewed GI consult- on Remecaide.at one point. per patient her GI was planning to do a scope eventually ? Steroids. per patient she does not do well with steroids with her Bipolar disorder Aggressive IVF- start 125 cc/hr Follow cultures Start patient on Flagyl and Ciprofloxacin IV Check UA recheck lactic acid Acute kidney injury secondary to GI loss from diarrhea and poor by mouth intake Started on IV fluids - 125 cc an hour. Monitor electrolytes., renal functions History of rheumatoid arthritis/osteoarthritis History of chronic pain IV Dilaudid when necessary for now continue on MS contin once daily History of bipolar disorder Continue Cymbalta Seroquel diazepam History of seizure disorder continue Topamax History of DVT. Continue on Xarelto History of bladder dysfunction continue Bethanecol We'll consult our gas load dispatcher services for TPN assessment Discussed Condition With Patient Physician Certification 2 Midnight Certification Type: Admission for Inpatient Services Order for Inpatient Services The services are ordered in accordance with Medicare regulations or non- Medicare payer requirements, as applicable. In the case of services not specified as inpatient-only, they are appropriately provided as inpatient services in accordance with the 2-midnight benchmark. Estimated LOS (days): 3 days is the estimated time the patient will need to remain in the hospital, assuming treatment plan goals are met and no additional complications. Post-Hospital Plan: Not yet determined Problem Qualifiers (1) Sepsis: Qualified Codes: A41.9 - Sepsis, unspecified organism Aaron Perez MD Jun 03, 2017 16:34
[2017-06-03] MEDS ORDERED: fentaNYL 100 MCG/HR PATCH T-DERMAL SCH (16:45)
[2017-06-03] MEDS: ONDANSETRON HCL 4 MG/2 ML VIAL IV PUSH PRN (17:51)
[2017-06-03] MEDS: CIPROFLOXACIN 400 MG PREMIX 200 ML IV SCH (17:52)
[2017-06-03] MEDS: metroNIDAZOLE 500 MG INJ 100 ML IV SCH (17:52)
[2017-06-03] MEDS: HYDROmorphone HCL PF 2 MG/ML VIAL IV PUSH PRN ×2 (17:52→22:49)
[2017-06-03] MEDS ORDERED: lamoTRIgine 25 MG TAB PO SCH (18:00)
[2017-06-03] MEDS ORDERED: ALBUTEROL SULFATE 90 MCG/ACT HFA 8 GM INHALER INH SCH ×2 (18:00→19:00)
[2017-06-03] MEDS: PANTOPRAZOLE SODIUM 40 MG VIAL IV PUSH SCH (18:51)
[2017-06-03] MEDS: BETHANECHOL CHL 25 MG TAB PO SCH (18:52)
[2017-06-03 20:00] VITALS: BP 148/80; PULSE 83; RESP 20; TEMP 98.7; O2SAT 97
[2017-06-03] MEDS ORDERED: LACTOBACILLUS ACIDOPHILUS TAB PO SCH (21:00)
[2017-06-03] MEDS ORDERED: fentaNYL 50 MCG/HR PATCH T-DERMAL ONE (21:00)
[2017-06-03] MEDS: TOPIRAMATE 200 MG TAB PO SCH (21:00)
[2017-06-03] MEDS: QUEtiapine FUMARATE 200 MG TAB PO SCH (21:00)
[2017-06-03] MEDS: LACTOBACILLUS ACIDOPHILUS TAB PO SCH (21:00)
[2017-06-03] MEDS: DIAZEPAM 5 MG TAB PO SCH (21:02)
[2017-06-03] MEDS: PREGABALIN 75 MG CAP PO SCH (21:03)
[2017-06-03] MEDS: lamoTRIgine 25 MG TAB PO SCH (22:16)
[2017-06-04] VITALS: BP 142/67; PULSE 84; RESP 19; TEMP 97.7; O2SAT 96
[2017-06-04] MEDS: metroNIDAZOLE 500 MG INJ 100 ML IV SCH ×3 (00:44→17:11)
[2017-06-04] MEDS: ONDANSETRON HCL 4 MG/2 ML VIAL IV PUSH PRN ×4 (00:44→18:37)
[2017-06-04] MEDS: SODIUM CHLOR 0.9% 1000 ML INJ 1,000 ML IV SCH ×2 (00:45→08:05)
[2017-06-04 04:00] VITALS: BP 133/61; PULSE 80; RESP 18; TEMP 98.1; O2SAT 97
[2017-06-04] MEDS: CIPROFLOXACIN 400 MG PREMIX 200 ML IV SCH ×2 (04:30→17:11)
[2017-06-04] MEDS: HYDROmorphone HCL PF 2 MG/ML VIAL IV PUSH PRN ×5 (04:30→23:00)
[2017-06-04 05:22] LABS: BILIRUBIN, URINE NEG (NEG); BLOOD, URINE SMALL (NEG); GLUCOSE,URINE NEG (NEG); KETONE, URINE TRACE mg/dL (NEG); MUCUS URINE FEW /lpf (OCC); NITRITE,URINE NEG (NEG); SQUAMOUS EPITHELIAL CELL URINE 1 /hpf (0-5); URINE COLOR YELLOW (YELLW/STRAW); URINE LEUKOCYTE ESTERASE TRACE (NEG)
[2017-06-04] MEDS: ALBUTEROL SULFATE 90 MCG/ACT HFA 8 GM INHALER INH SCH ×5 (05:31→23:00)
[2017-06-04 08:00] VITALS: BP 133/66; PULSE 66; RESP 18; TEMP 98.1; O2SAT 99
[2017-06-04] MEDS ORDERED: PANTOPRAZOLE SODIUM 40 MG VIAL IV PUSH SCH (08:00)
[2017-06-04] MEDS: lamoTRIgine 25 MG TAB PO SCH ×3 (08:04→17:12)
[2017-06-04] MEDS: DULoxetine HCl DR 30 MG CAP PO SCH (08:04)
[2017-06-04] MEDS: LACTOBACILLUS ACIDOPHILUS TAB PO SCH ×2 (08:04→21:00)
[2017-06-04] MEDS: DULoxetine HCl DR 60 MG CAP PO SCH (08:04)
[2017-06-04] MEDS: BETHANECHOL CHL 25 MG TAB PO SCH ×3 (08:05→17:12)
[2017-06-04] MEDS: PREGABALIN 75 MG CAP PO SCH ×2 (08:05→21:00)
[2017-06-04] MEDS: RIVAROXABAN 20 MG TAB PO SCH (08:05)
[2017-06-04] MEDS: DIAZEPAM 5 MG TAB PO SCH ×2 (08:05→21:00)
[2017-06-04] MEDS: DRONABINOL 2.5 MG CAP PO SCH (08:05)
[2017-06-04] MEDS: TOPIRAMATE 25 MG TAB PO SCH (08:05)
[2017-06-04] MEDS: MORPHINE SULFATE 60 MG CONTROLLED RELEASE TAB PO SCH (08:05)
[2017-06-04 08:09] LABS: AUTOMATED NEUTROPHIL # 3.6 TH/MM3 (1.8-7.7); BASOPHIL % 0.4 % (0.0-2.0); EOSINOPHIL # 0.3 TH/MM3 (0-0.4); EOSINOPHIL % 2.7 % (0.0-4.0); HEMATOCRIT 34.9 % (35.0-46.0); HEMOGLOBIN 11.7 GM/DL (11.6-15.3); LYMPH % 52.5 % (9.0-44.0); MEAN CELL VOLUME 95.7 FL (80.0-100.0); MEAN CORPUSCULAR HGB CONC 33.4 % (32.0-36.0); MEAN PLATELET VOLUME 10.1 FL (7.0-11.0); MONO % 6.5 % (0.0-8.0); MONOCYTE # 0.6 TH/MM3 (0-0.9); NEUT % 37.9 % (16.0-70.0); PLATELET COUNT 232 TH/MM3 (150-450); RED BLOOD COUNT 3.65 MIL/MM3 (4.00-5.30); RED CELL DISTRIBUTION WIDTH 13.5 % (11.6-17.2); WHITE BLOOD COUNT 9.6 TH/MM3 (4.0-11.0)
[2017-06-04 08:32] LABS: BICARBONATE 22.8 MEQ/L (21.0-32.0); CALCIUM 8.2 MG/DL (8.5-10.1); CREATININE 0.79 MG/DL (0.50-1.00)
[2017-06-04] MEDS ORDERED: LACTOBACILLUS ACIDOPHILUS TAB PO SCH (09:00)
[2017-06-04] MEDS ORDERED: ALTEPLASE RECOMBINANT 2 MG VIAL INTRACATH ONE ×2 (09:15→15:00)
--- NOTE | 2017-06-04 10:15 | PD.CONS ---
HPI History of Present Illness This is a 52 year old female with Crohn's, bipolar disorder, seizure disorder, on pain mgmt who presented with severe abd pain, n/v. This particular episode started in March. She was seen at [facility] in [place] and found to have high number rifiximab antibodies, advised to f/u with her GI Dr Luna, and limit opioids. She tells me she was recently diagnosed with gastroparesis per positive GES, not on any meds for this. She had a port and was taking TPN but this port became infected in March and was removed adn she was treated with abx. She says she was checked for c diff and it was negative. She had EGD and colonoscopy was 1-[address] Luna, colonoscopy suggested improvement in Crohn's and the EGD did not indicate improvement in her Crohn's. She says she cannot have steroids b/c they affect her bipolar meds and make her "loopy." She was to start entocort per her GI but her insurance will not pay for it. (Magdalena Pérez) PFSH Past Medical History Bipolar disorder Crohn's disease Rheumatoid arthritis/osteoarthritis Chronic pain History of seizure disorder History of DVT Past Surgical History Port placement on the left side of the chest was removed March 2017 because of infection. Hysterectomy secondary to fibroids Appendectomy Cholecystectomy Cervical laminectomy/fusion surgery (Magdalena Pérez) Coded Allergies: aspirin (Unverified Allergy, Severe, "ANAPHYLAXIS", 01/07/17) bupropion (Unverified Allergy, Severe, Seizures, 01/07/17) ibuprofen (Unverified Allergy, Severe, "ANAPHYLAXIS", 01/07/17) iodine (Unverified Allergy, Severe, "ANAPHYLAXIS", 01/07/17) potassium iodide (Unverified Allergy, Severe, "ANAPHYLAXIS", 01/07/17) povidone-iodine (Unverified Allergy, Severe, "ANAPHYLAXIS", 01/07/17) sodium iodide (Unverified Allergy, Severe, "ANAPHYLAXIS", 01/07/17) sodium iodide (Unverified Allergy, Severe, "ANAPHYLAXIS", 01/07/17) sumatriptan (Unverified Allergy, Severe, "ANAPHYLAXIS", 01/07/17) warfarin (Unverified Allergy, Severe, "ANAPHYLAXIS", 01/07/17) Uncoded Allergies: ALL FISH (Allergy, Severe, Anaphylaxis, 05/07/07) Family History Noncontributory Social History Denies alcohol or substance abuse History of smoking a pack a day quit a month ago Denies IV drug use (Magdalena Pérez) Review of Systems Constitutional: DENIES: Diaphoretic episodes Endocrine: DENIES: Polydipsia Eyes: DENIES: Blurred vision Ears, nose, mouth, throat: DENIES: Hearing loss Respiratory: DENIES: Cough Cardiovascular: DENIES: Chest pain Gastrointestinal: COMPLAINS OF: Abdominal pain, Diarrhea, Nausea, Vomiting, DENIES: Black stools, Bloody stools, Constipation, Hematemesis Genitourinary: DENIES: Hematuria Musculoskeletal: DENIES: Muscle aches Integumentary: DENIES: Abnormal pigmentation Hematologic/lymphatic: DENIES: Bruising Immunologic/allergic: DENIES: Eczema Neurologic: DENIES: Abnormal gait Psychiatric: DENIES: Confusion (Magdalena Pérez) GI Exam Vitals I&O Vital Signs Date Time Temp Pulse Resp B/P (MAP) Pulse Ox O2 Delivery O2 Flow Rate FiO2 06/04/17 08:34 16 06/04/17 08:00 98.1 66 18 133/66 (88) 99 06/04/17 04:00 98.1 80 18 133/61 (85) 97 06/04/17 00:00 97.7 84 19 142/67 (92) 96 06/03/17 20:00 98.7 83 20 148/80 (102) 97 06/03/17 16:00 98.0 90 18 119/62 (81) 98 06/03/17 12:14 99 16 147/81 (103) 100 Room Air I/O 06/03/17 06/03/17 06/03/17 06/04/17 06/04/17 06/04/17 07:00 15:00 23:00 07:00 15:00 23:00 Intake Total 2850 ml 1300 ml Balance 2850 ml 1300 ml Intake IV Total 2850 ml 1300 ml # Voids 1 Imaging Last Impressions Chest X-Ray 06/03/17 0651 Signed Impressions: Service Date/Time: Saturday, June 03, 2017 07:11 - CONCLUSION: No acute cardiopulmonary abnormality is identified. Nicholas Mayo MD Abdomen/Pelvis CT 06/03/17 0000 Signed Impressions: Service Date/Time: Saturday, June 03, 2017 10:58 - CONCLUSION: Mild nonspecific fluid and gaseous distention of bowel. Tiny nonobstructing right kidney stone. Nicholas Weeks MD Laboratory Test 06/03/17 16:52 06/04/17 05:13 06/04/17 07:29 Lactic Acid Level 1.3 mmol/L Urine Color YELLOW Urine Turbidity CLEAR Urine pH 5.0 Urine Specific Mascot 1.017 Urine Protein TRACE mg/dL Urine Glucose (UA) NEG mg/dL Urine Ketones TRACE mg/dL Urine Occult Blood SMALL Urine Nitrite NEG Urine Bilirubin NEG Urine Urobilinogen LESS THAN 2.0 MG/DL Urine Leukocyte Esterase TRACE Urine RBC 4 /hpf Urine WBC 2 /hpf Urine Squamous Epithelial Cells 1 /hpf Urine Mucus FEW /lpf Microscopic Urinalysis Comment CULT NOT INDICATED White Blood Count 9.6 TH/MM3 Red Blood Count 3.65 MIL/MM3 Hemoglobin 11.7 GM/DL Hematocrit 34.9 % Mean Corpuscular Volume 95.7 FL Mean Corpuscular Hemoglobin 32.0 PG Mean Corpuscular Hemoglobin Concent 33.4 % Red Cell Distribution Width 13.5 % Platelet Count 232 TH/MM3 Mean Platelet Volume 10.1 FL Neutrophils (%) (Auto) 37.9 % Lymphocytes (%) (Auto) 52.5 % Monocytes (%) (Auto) 6.5 % Eosinophils (%) (Auto) 2.7 % Basophils (%) (Auto) 0.4 % Neutrophils # (Auto) 3.6 TH/MM3 Lymphocytes # (Auto) 5.0 TH/MM3 Monocytes # (Auto) 0.6 TH/MM3 Eosinophils # (Auto) 0.3 TH/MM3 Basophils # (Auto) 0.0 TH/MM3 CBC Comment DIFF FINAL Differential Comment Blood Urea Nitrogen 22 MG/DL Creatinine 0.79 MG/DL Random Glucose 83 MG/DL Calcium Level 8.2 MG/DL Sodium Level 140 MEQ/L Potassium Level 3.5 MEQ/L Chloride Level 108 MEQ/L Carbon Dioxide Level 22.8 MEQ/L Anion Gap 9 MEQ/L Estimat Glomerular Filtration Rate 77 ML/MIN Date/Time Source Procedure Growth Status 06/03/17 07:50 Blood Peripheral Aerobic Blood Culture Pending Received 06/03/17 07:50 Blood Peripheral Anaerobic Blood Culture Pending Received 06/03/17 07:50 Stool Stool Stool Pus (LONNIE) Pending Received Physical Examination HEENT: PERRL; normocephalic; atraumatic; no jaundice. CHEST: CTA CARDIAC: RRR ABDOMEN: Soft,mildly distended, diffusely tender; no hepatosplenomegaly; bowel sounds are present in all four quadrants. EXTREMITIES: No clubbing, cyanosis, or edema. SKIN: Normal; no rash; no jaundice. CIRCUIT WALKER: No focal deficits; alert and oriented times three. (Magdalena Pérez) Assessment and Plan Plan ASSESSMENT - nausea, vomiting, abd pain, watery diarrhea - prob Crohn's exacerbation, since Mar 2017. on remicade, labwork from [facility] in April 2017 indicates increase antibodies to rifiximab. WAs on TPN via port which became infected. neg for c diff and enteric pathogens. She is allergic to aspirin and says steroids affect her bipolar meds and the last time she had steroids (doesn't know how much or what kind) she was corea acted. last dose remicade 03/13 but no further doses planned d/t resistance PLAN - consider entocort but unfortunately not available here - continue probiotics - will need to f/u with her GI after d/c This pt seen by myself and Dr Sumner and this note is written on her behalf (Magdalena Pérez) Physician Comments seen, examined agree with above egd/colonoscopy on Friday obtain records dr luna consult corrugator helper for tpn start tpn for now we will discuss with pharmacy about potentially getting Entocort/Entyvio states she is unable to take her bipolar medications -consider consulting psych- we will leave it up to primary (Shae Sumner MD) Magdalena Pérez Jun 04, 2017 10:15 Shae Sumner MD Jun 04, 2017 17:41
[2017-06-04 12:00] VITALS: BP 125/64; PULSE 88; RESP 18; TEMP 98; O2SAT 99
--- NOTE | 2017-06-04 13:38 | HHI.PR ---
Subjective Remarks Follow-up sepsis, nausea/vomiting. The patient continues to have nausea and dry heaves. Denies cough, dyspnea. Objective Vitals Vital Signs Date Time Temp Pulse Resp B/P (MAP) Pulse Ox O2 Delivery O2 Flow Rate FiO2 06/04/17 12:00 98.0 88 18 125/64 (84) 99 06/04/17 08:34 16 06/04/17 08:00 98.1 66 18 133/66 (88) 99 06/04/17 04:00 98.1 80 18 133/61 (85) 97 06/04/17 00:00 97.7 84 19 142/67 (92) 96 06/03/17 20:00 98.7 83 20 148/80 (102) 97 06/03/17 16:00 98.0 90 18 119/62 (81) 98 I/O 06/03/17 06/03/17 06/03/17 06/04/17 06/04/17 06/04/17 07:00 15:00 23:00 07:00 15:00 23:00 Intake Total 2850 ml 1300 ml Balance 2850 ml 1300 ml Intake IV Total 2850 ml 1300 ml # Voids 1 Result Diagram: 06/04/17 0729 06/04/17 0729 Imaging Last Impressions Chest X-Ray 06/03/17 0651 Signed Impressions: Service Date/Time: Saturday, June 03, 2017 07:11 - CONCLUSION: No acute cardiopulmonary abnormality is identified. Nichoals Mayo MD Abdomen/Pelvis CT 06/03/17 0000 Signed Impressions: Service Date/Time: Saturday, June 03, 2017 10:58 - CONCLUSION: Mild nonspecific fluid and gaseous distention of bowel. Tiny nonobstructing right kidney stone. Nicholas Weeks MD Objective Remarks General: No acute distress. Appears uncomfortable. Heart: Regular rate and rhythm. No murmur. Lungs: Clear to auscultation bilaterally. No wheezes, rales, or rhonchi. Breathing is nonlabored. Abdomen: Soft, mild diffuse tenderness without rebound or guarding, mildly distended. Extremities: No lower extremity edema. Psych: Alert and oriented. Procedures None Urinary Catheter: No Vascular Central Line Catheter: No A/P Problem List: (1) Sepsis ICD Code: A41.9 - Sepsis, unspecified organism Status: Acute (2) Acute kidney injury ICD Code: N17.9 - Acute kidney failure, unspecified (3) Exacerbation of Crohn's disease ICD Code: K50.90 - Crohn's disease, unspecified, without complications Assessment and Plan 1. Severe sepsis: Likely GI source. Patient continues to have nausea and vomiting. Sepsis has resolved. 2. Lactic acidosis: Resolved. 3. Acute kidney injury: Improving. Continue IV fluids. 4. Nausea/vomiting: Patient has been having nausea and vomiting for the past few months. She has been on TPN. Dietary consult to assist with TPN. Continue antibiotics. Appreciate GI recommendations. 5. Crohn's disease, exacerbation: Appreciate GI recommendations. Entocort recommended, but not available at this time. 6. Chronic pain: Continue pain medication. 7. History of bipolar disorder: Continue Cymbalta, Seroquel, diazepam. 8. History of seizure disorder: Continue Topamax. 9. History of DVT: Continue Xarelto. 10. History of bladder dysfunction: Continue bethanechol. Discharge Planning Pending clinical improvement. Problem Qualifiers (1) Sepsis: Qualified Codes: A41.9 - Sepsis, unspecified organism Ron Reynaga MD Jun 04, 2017 13:38
[2017-06-04] MEDS: D5-NS + KCL 20 MEQ INJ 1,000 ML IV SCH ×2 (13:56→21:49)
[2017-06-04 16:00] VITALS: BP 148/76; PULSE 80; RESP 18; TEMP 96.8; O2SAT 99
[2017-06-04] MEDS: PANTOPRAZOLE SODIUM 40 MG VIAL IV PUSH SCH (17:15)
[2017-06-04 20:30] VITALS: BP 134/63; PULSE 84; RESP 18; TEMP 98.9; O2SAT 99
[2017-06-04] MEDS: QUEtiapine FUMARATE 200 MG TAB PO SCH (21:00)
[2017-06-04] MEDS: TOPIRAMATE 200 MG TAB PO SCH (21:00)
[2017-06-04] MEDS: CLINIMIX 5/25 (Custom) 2000 mL- >42 mls/hr IV-CENTRAL SCH ×9 (21:47)
[2017-06-04] MEDS: FAT EMULSION 20% INJ 250 ML (@10 mls/hr) IV-CENTRAL SCH (21:47)
[2017-06-05] MEDS: metroNIDAZOLE 500 MG INJ 100 ML IV SCH ×3 (00:40→16:13)
[2017-06-05] MEDS: ONDANSETRON HCL 4 MG/2 ML VIAL IV PUSH PRN ×2 (00:40→06:33)
[2017-06-05 01:03] VITALS: BP 160/66; PULSE 82; RESP 18; TEMP 97.5; O2SAT 98
[2017-06-05] MEDS: HYDROmorphone HCL PF 2 MG/ML VIAL IV PUSH PRN ×6 (02:28→21:42)
[2017-06-05] MEDS: CIPROFLOXACIN 400 MG PREMIX 200 ML IV SCH ×2 (04:22→16:13)
[2017-06-05 04:50] LABS: AUTOMATED NEUTROPHIL # 2.9 TH/MM3 (1.8-7.7); BASOPHIL # 0.1 TH/MM3 (0-0.2); BASOPHIL % 0.8 % (0.0-2.0); EOSINOPHIL # 0.3 TH/MM3 (0-0.4); EOSINOPHIL % 4.2 % (0.0-4.0); HEMATOCRIT 26.6 % (35.0-46.0); HEMOGLOBIN 9.1 GM/DL (11.6-15.3); LYMPH % 47.4 % (9.0-44.0); LYMPHOCYTE # 3.4 TH/MM3 (1.0-4.8); MEAN CELL VOLUME 95.7 FL (80.0-100.0); MEAN CORPUSCULAR HEMOGLOBIN 32.7 PG (27.0-34.0); MEAN CORPUSCULAR HGB CONC 34.2 % (32.0-36.0); MONO % 7.6 % (0.0-8.0); MONOCYTE # 0.6 TH/MM3 (0-0.9); PLATELET COUNT 191 TH/MM3 (150-450); RED BLOOD COUNT 2.78 MIL/MM3 (4.00-5.30); RED CELL DISTRIBUTION WIDTH 13.2 % (11.6-17.2); WHITE BLOOD COUNT 7.2 TH/MM3 (4.0-11.0)
[2017-06-05 05:00] VITALS: BP 135/63; PULSE 83; RESP 18; TEMP 98.2; O2SAT 99
[2017-06-05] MEDS: ALBUTEROL SULFATE 90 MCG/ACT HFA 8 GM INHALER INH SCH ×3 (06:00→16:14)
[2017-06-05] MEDS: LACTOBACILLUS ACIDOPHILUS TAB PO SCH ×2 (07:30→21:00)
[2017-06-05] MEDS: DULoxetine HCl DR 30 MG CAP PO SCH (07:30)
[2017-06-05] MEDS: lamoTRIgine 25 MG TAB PO SCH ×3 (07:30→16:14)
[2017-06-05] MEDS: DULoxetine HCl DR 60 MG CAP PO SCH (07:30)
[2017-06-05] MEDS: RIVAROXABAN 20 MG TAB PO SCH (07:31)
[2017-06-05] MEDS: MORPHINE SULFATE 60 MG CONTROLLED RELEASE TAB PO SCH (07:31)
[2017-06-05] MEDS: DIAZEPAM 5 MG TAB PO SCH ×2 (07:31→21:00)
[2017-06-05] MEDS: TOPIRAMATE 25 MG TAB PO SCH (07:31)
[2017-06-05] MEDS: BETHANECHOL CHL 25 MG TAB PO SCH ×3 (07:31→16:14)
[2017-06-05] MEDS: PREGABALIN 75 MG CAP PO SCH ×2 (07:31→21:00)
[2017-06-05] MEDS: DRONABINOL 2.5 MG CAP PO SCH (07:31)
[2017-06-05] MEDS: D5-NS + KCL 20 MEQ INJ 1,000 ML IV SCH ×2 (07:32→16:15)
[2017-06-05 08:37] VITALS: BP 140/65; PULSE 88; RESP 18; TEMP 98.3; O2SAT 99
[2017-06-05 09:55] LABS: CALCIUM 7.2 MG/DL (8.5-10.1); CREATININE 0.65 MG/DL (0.50-1.00); MAGNESIUM 1.7 MG/DL (1.5-2.5); PHOSPHORUS 3.2 MG/DL (2.5-4.9)
[2017-06-05] MEDS ORDERED: ONDANSETRON HCL 4 MG/2 ML VIAL IV PUSH PRN (10:45)
[2017-06-05 10:46] LABS: CALCIUM-PROTEIN CORRECTED 7.9 MG/DL (8.5-10.1); TOTAL PROTEIN 5.8 GM/DL (6.4-8.2)
--- NOTE | 2017-06-05 11:02 | HHI.PR ---
Subjective Remarks Follow up nausea/vomiting, abdominal pain. Patient reports her reflux is better , but she still has significant nausea/vomiting. Objective Vitals Vital Signs Date Time Temp Pulse Resp B/P (MAP) Pulse Ox O2 Delivery O2 Flow Rate FiO2 06/05/17 10:47 16 06/05/17 08:37 98.3 88 18 140/65 (90) 99 06/05/17 05:00 98.2 83 18 135/63 (87) 99 06/05/17 01:03 97.5 82 18 160/66 (97) 98 06/04/17 20:30 98.9 84 18 134/63 (86) 99 06/04/17 16:00 96.8 80 18 148/76 (100) 99 06/04/17 12:00 98.0 88 18 125/64 (84) 99 I/O 06/04/17 06/04/17 06/04/17 06/05/17 06/05/17 06/05/17 07:00 15:00 23:00 07:00 15:00 23:00 Intake Total 1300 ml 867 ml 100 ml Balance 1300 ml 867 ml 100 ml Intake IV Total 1300 ml 867 ml 100 ml # Voids 2 2 # Bowel Movements 1 2 Result Diagram: 06/05/17 0420 06/05/17 0849 Imaging Last Impressions Chest X-Ray 06/03/17 0651 Signed Impressions: Service Date/Time: Saturday, June 03, 2017 07:11 - CONCLUSION: No acute cardiopulmonary abnormality is identified. Nicholas Mayo MD Abdomen/Pelvis CT 06/03/17 0000 Signed Impressions: Service Date/Time: Saturday, June 03, 2017 10:58 - CONCLUSION: Mild nonspecific fluid and gaseous distention of bowel. Tiny nonobstructing right kidney stone. Nicholas Weeks MD Objective Remarks General: No acute distress. Appears more comfortable today. Heart: Regular rate and rhythm. No murmur. Lungs: Clear to auscultation bilaterally. No wheezes, rales, or rhonchi. Breathing is nonlabored. Abdomen: Soft, mild diffuse tenderness without rebound or guarding, mildly distended. Extremities: No lower extremity edema. Psych: Alert and oriented. Procedures None Urinary Catheter: No Vascular Central Line Catheter: No A/P Problem List: (1) Sepsis ICD Code: A41.9 - Sepsis, unspecified organism Status: Acute (2) Acute kidney injury ICD Code: N17.9 - Acute kidney failure, unspecified (3) Exacerbation of Crohn's disease ICD Code: K50.90 - Crohn's disease, unspecified, without complications Assessment and Plan 1. Severe sepsis: Likely GI source. Patient continues to have nausea and vomiting. Sepsis has resolved. 2. Lactic acidosis: Resolved. 3. Acute kidney injury: Improving. Continue IV fluids. 4. Nausea/vomiting: Patient has been having nausea and vomiting for the past few months. Continue TPN. Continue anti-emetics. Appreciate GI recommendations. 5. Crohn's disease, exacerbation: Appreciate GI recommendations. Entocort recommended, but not available at this time. 6. Chronic pain: Continue pain medication. 7. History of bipolar disorder: Continue Cymbalta, Seroquel, diazepam. 8. History of seizure disorder: Continue Topamax. 9. History of DVT: Continue Xarelto. 10. History of bladder dysfunction: Continue bethanechol. 11. Anemia: No apparent bleeding. Monitor H/H. Discharge Planning Pending clinical improvement. Problem Qualifiers (1) Sepsis: Qualified Codes: A41.9 - Sepsis, unspecified organism Ron Reynaga MD Jun 05, 2017 11:02
[2017-06-05] MEDS: ONDANSETRON INJ 8 MG in DEXTROSE 5% IN WATER INJ 50 ML IV PRN ×4 (12:06→21:01)
[2017-06-05 12:43] VITALS: BP 130/59; PULSE 91; RESP 18; TEMP 98.7; O2SAT 100
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
--- NOTE | 2017-06-05 15:27 | HHI.GIFU ---
Subjective Remarks Pt resting in bed. Says protonix helped her reflux greatly. Still with n/v, abd pain. Dilaudid helping pain.. (Magdalena Pérez) Objective Vitals I&O Vital Signs Date Time Temp Pulse Resp B/P (MAP) Pulse Ox O2 Delivery O2 Flow Rate FiO2 06/05/17 12:43 98.7 91 18 130/59 (82) 100 06/05/17 10:47 16 06/05/17 08:37 98.3 88 18 140/65 (90) 99 06/05/17 05:00 98.2 83 18 135/63 (87) 99 06/05/17 01:03 97.5 82 18 160/66 (97) 98 06/04/17 20:30 98.9 84 18 134/63 (86) 99 06/04/17 16:00 96.8 80 18 148/76 (100) 99 I/O 06/04/17 06/04/17 06/04/17 06/05/17 06/05/17 06/05/17 07:00 15:00 23:00 07:00 15:00 23:00 Intake Total 1300 ml 867 ml 100 ml Balance 1300 ml 867 ml 100 ml Intake IV Total 1300 ml 867 ml 100 ml # Voids 2 2 # Bowel Movements 1 2 Laboratory Laboratory Tests Test 06/05/17 04:20 06/05/17 08:49 White Blood Count 7.2 Red Blood Count 2.78 Hemoglobin 9.1 Hematocrit 26.6 Mean Corpuscular Volume 95.7 Mean Corpuscular Hemoglobin 32.7 Mean Corpuscular Hemoglobin Concent 34.2 Red Cell Distribution Width 13.2 Platelet Count 191 Mean Platelet Volume 10.0 Neutrophils (%) (Auto) 40.0 Lymphocytes (%) (Auto) 47.4 Monocytes (%) (Auto) 7.6 Eosinophils (%) (Auto) 4.2 Basophils (%) (Auto) 0.8 Neutrophils # (Auto) 2.9 Lymphocytes # (Auto) 3.4 Monocytes # (Auto) 0.6 Eosinophils # (Auto) 0.3 Basophils # (Auto) 0.1 CBC Comment DIFF FINAL Differential Comment Blood Urea Nitrogen 10 Creatinine 0.65 Random Glucose 364 Total Protein 5.8 Calcium Level 7.2 Phosphorus Level 3.2 Magnesium Level 1.7 Sodium Level 136 Potassium Level 3.5 Chloride Level 103 Carbon Dioxide Level 24.0 Anion Gap 9 Estimat Glomerular Filtration Rate 96 Protein Corrected Calcium 7.9 Date/Time Source Procedure Growth Status 06/03/17 07:50 Blood Peripheral Aerobic Blood Culture - Preliminary NO GROWTH IN 2 DAYS Resulted 06/03/17 07:50 Blood Peripheral Anaerobic Blood Culture - Preliminary NO GROWTH IN 2 DAYS Resulted 06/03/17 07:50 Stool Stool Stool Pus (LONNIE) - Final NO WBC'S SEEN Complete Imaging Last Impressions Chest X-Ray 06/03/17 0651 Signed Impressions: Service Date/Time: Saturday, June 03, 2017 07:11 - CONCLUSION: No acute cardiopulmonary abnormality is identified. Nicholas Mayo MD Abdomen/Pelvis CT 06/03/17 0000 Signed Impressions: Service Date/Time: Saturday, June 03, 2017 10:58 - CONCLUSION: Mild nonspecific fluid and gaseous distention of bowel. Tiny nonobstructing right kidney stone. Nicholas Weeks MD Physical Exam HEENT: PERRL; normocephalic; atraumatic; no jaundice. CHEST: CTA CARDIAC: RRR ABDOMEN: Soft, mildly distended, diffuse TTP; no hepatosplenomegaly; bowel sounds are present in all four quadrants. EXTREMITIES: No clubbing, cyanosis, or edema. SKIN: Normal; no rash; no jaundice. SAFETY SPECIALIST: No focal deficits; alert and oriented times three. (Magdalena Pérez [facility]) Assessment and Plan Plan ASSESSMENT - nausea, vomiting, abd pain, watery diarrhea - prob Crohn's exacerbation, since Mar 2017. on remicade, labwork from [facility] in April 2017 indicates increase antibodies to rifiximab. WAs on TPN via port which became infected. neg for c diff and enteric pathogens. She is allergic to aspirin and says steroids affect her bipolar meds and the last time she had steroids (doesn't know how much or what kind) she was corea acted. last dose remicade 03/13 but no further doses planned d/t resistance 06/05/16 - going for EGD/colonoscopy tomorrow. psych consult appreciated d/t vomiting bipolar meds. PPI helping with reflux but still with n/v, abd pain. PLAN - EGD/colonoscopy in am - obtain consent - NPO, on TPN - dulcolax prep - continue probiotics - cont PPI - will discuss entocort w/ pharm - will need to f/u with her GI after d/c This pt seen by myself and Dr Sumner and this note is written on her behalf (Magdalena Pérez) Physician Comments seen, examined agree with above egd/colon in am (Shae Sumner MD) Magdalena Pérez Jun 05, 2017 15:27 Shae Sumner MD Jun 05, 2017 16:54
[2017-06-05] MEDS: PANTOPRAZOLE SODIUM 40 MG VIAL IV PUSH SCH (16:14)
[2017-06-05 16:59] VITALS: BP 136/61; PULSE 87; RESP 18; TEMP 99; O2SAT 100
[2017-06-05] MEDS ORDERED: MAGNESIUM CITRATE SOLN 300 ML BTL PO ONE (17:00)
[2017-06-05] MEDS ORDERED: BISACODYL EC 5 MG TABEC PO ONE (20:00)
[2017-06-05] MEDS: TOPIRAMATE 200 MG TAB PO SCH (21:00)
[2017-06-05] MEDS: QUEtiapine FUMARATE 200 MG TAB PO SCH (21:00)
[2017-06-05 21:16] VITALS: BP 156/73; PULSE 87; RESP 20; TEMP 98.6; O2SAT 100
[2017-06-05] MEDS: CLINIMIX 5/25 (Custom) 2000 mL- >42 mls/hr IV-CENTRAL SCH ×9 (21:27)
[2017-06-05] MEDS: FAT EMULSION 20% INJ 250 ML (@10 mls/hr) IV-CENTRAL SCH (21:27)
[2017-06-05] MEDS: LORazepam 2 MG/ML VIAL IV PUSH PRN (23:19)
[2017-06-06 02:06] VITALS: BP 115/73; PULSE 100; RESP 20; TEMP 98.1; O2SAT 99
[2017-06-06] MEDS: metroNIDAZOLE 500 MG INJ 100 ML IV SCH ×3 (02:26→16:12)
[2017-06-06] MEDS: HYDROmorphone HCL PF 2 MG/ML VIAL IV PUSH PRN ×4 (02:27→20:59)
[2017-06-06] MEDS ORDERED: LACTATED RINGER'S 1000 ML IV PRN (03:30)
[2017-06-06] MEDS ORDERED: SODIUM CHLORID 0.9% 500 ML IV PRN (03:30)
[2017-06-06] MEDS ORDERED: CHLORHEXIDINE GLUCONATE 2 % 1 PACK (2 CLOTHS) TOPICAL PRN (03:30)
[2017-06-06] MEDS: ONDANSETRON INJ 8 MG in DEXTROSE 5% IN WATER INJ 50 ML IV PRN ×4 (05:53→20:30)
[2017-06-06] MEDS: CIPROFLOXACIN 400 MG PREMIX 200 ML IV SCH ×2 (05:53→16:12)
[2017-06-06] MEDS: ALBUTEROL SULFATE 90 MCG/ACT HFA 8 GM INHALER INH SCH ×4 (06:00→16:16)
[2017-06-06 06:21] VITALS: BP 151/63; PULSE 86; RESP 20; TEMP 98.4; O2SAT 99
[2017-06-06 06:30] LABS: AUTOMATED NEUTROPHIL # 3.4 TH/MM3 (1.8-7.7); BASOPHIL % 0.5 % (0.0-2.0); EOSINOPHIL # 0.5 TH/MM3 (0-0.4); EOSINOPHIL % 5.5 % (0.0-4.0); HEMATOCRIT 30.4 % (35.0-46.0); HEMOGLOBIN 10.3 GM/DL (11.6-15.3); LYMPH % 45.9 % (9.0-44.0); LYMPHOCYTE # 3.9 TH/MM3 (1.0-4.8); MEAN CELL VOLUME 93.3 FL (80.0-100.0); MEAN CORPUSCULAR HEMOGLOBIN 31.6 PG (27.0-34.0); MEAN CORPUSCULAR HGB CONC 33.8 % (32.0-36.0); MEAN PLATELET VOLUME 9.5 FL (7.0-11.0); MONO % 7.8 % (0.0-8.0); MONOCYTE # 0.7 TH/MM3 (0-0.9); NEUT % 40.3 % (16.0-70.0); PLATELET COUNT 226 TH/MM3 (150-450); RED BLOOD COUNT 3.26 MIL/MM3 (4.00-5.30); RED CELL DISTRIBUTION WIDTH 12.8 % (11.6-17.2); WHITE BLOOD COUNT 8.4 TH/MM3 (4.0-11.0)
[2017-06-06 07:09] LABS: BICARBONATE 29.4 MEQ/L (21.0-32.0); CREATININE 0.47 MG/DL (0.50-1.00)
[2017-06-06] MEDS ORDERED: POTASSIUM CHLOR 20 MEQ PREMIX 100 ML IV ONE (08:00)
[2017-06-06 08:32] VITALS: BP 109/55; PULSE 89; RESP 18; TEMP 98.9; O2SAT 97
[2017-06-06] MEDS: lamoTRIgine 25 MG TAB PO SCH ×3 (08:47→16:16)
[2017-06-06] MEDS: DULoxetine HCl DR 60 MG CAP PO SCH (08:47)
[2017-06-06] MEDS: DULoxetine HCl DR 30 MG CAP PO SCH (08:47)
[2017-06-06] MEDS: LACTOBACILLUS ACIDOPHILUS TAB PO SCH ×2 (08:47→21:00)
[2017-06-06] MEDS: PREGABALIN 75 MG CAP PO SCH ×2 (08:48→21:00)
[2017-06-06] MEDS: RIVAROXABAN 20 MG TAB PO SCH (08:48)
[2017-06-06] MEDS: TOPIRAMATE 25 MG TAB PO SCH (08:48)
[2017-06-06] MEDS: BETHANECHOL CHL 25 MG TAB PO SCH ×3 (08:48→16:16)
[2017-06-06] MEDS: DIAZEPAM 5 MG TAB PO SCH ×2 (08:48→21:00)
[2017-06-06] MEDS: DRONABINOL 2.5 MG CAP PO SCH (08:48)
[2017-06-06] MEDS: MORPHINE SULFATE 60 MG CONTROLLED RELEASE TAB PO SCH (08:48)
[2017-06-06] MEDS: POTASSIUM CHLOR 10 MEQ PREMIX 100 ML IV SCH ×2 (08:49→08:59)
[2017-06-06] MEDS: LORazepam 2 MG/ML VIAL IV PUSH PRN (08:58)
[2017-06-06] MEDS ORDERED: SODIUM CHLORIDE 0.9% 20 ML VIAL IV ONE (12:00)
[2017-06-06] MEDS ORDERED: LIDOCAINE HCL 1% PF 5 ML SYRINGE OTHER ONE (12:00)
[2017-06-06] MEDS ORDERED: PROPOFOL 200 MG/20 ML AMP IV ONE (12:00)
[2017-06-06 12:46] VITALS: BP 129/57; PULSE 82; RESP 18; TEMP 97.8; O2SAT 98
--- NOTE | 2017-06-06 13:11 | HHI.PYPN ---
Subjective Remarks Patient is seen for reevaluation. Patient is found sleeping, but easily arousable. He reports a better mood today, feeling less anxious. She reports a better sleep last night, she says that she is motivated to continue her medical treatment, getting better going back home. She denies suicidal and homicidal ideation, she denies visual and auditory hallucinations. She is oriented 3, compliant with medications, no significant side effects. Review of Systems Except as stated in HPI: all other systems reviewed are Neg Mental Status Examination Appearance: Appropriate Consciousness: Alert Orientation: x4 Motor Activity: Normal gait Speech: Unremarkable Language: Adequate Fund of Knowledge: Adequate Attention and Concentration: Adequate Memory: Unremarkable Mood: Appropriate Affect: Appropriate Thought Process & Associations: Intact Thought Content: Appropriate Hallucination Type: None Delusion Type: None Suicidal Ideation: No Suicidal Plan: No Suicidal Intention: No Homicidal Ideation: No Homicidal Plan: No Homicidal Intention: No Insight: Adequate Judgment: Adequate Results Labs Test 06/06/17 05:55 White Blood Count 8.4 TH/MM3 Red Blood Count 3.26 MIL/MM3 Hemoglobin 10.3 GM/DL Hematocrit 30.4 % Mean Corpuscular Volume 93.3 FL Mean Corpuscular Hemoglobin 31.6 PG Mean Corpuscular Hemoglobin Concent 33.8 % Red Cell Distribution Width 12.8 % Platelet Count 226 TH/MM3 Mean Platelet Volume 9.5 FL Neutrophils (%) (Auto) 40.3 % Lymphocytes (%) (Auto) 45.9 % Monocytes (%) (Auto) 7.8 % Eosinophils (%) (Auto) 5.5 % Basophils (%) (Auto) 0.5 % Neutrophils # (Auto) 3.4 TH/MM3 Lymphocytes # (Auto) 3.9 TH/MM3 Monocytes # (Auto) 0.7 TH/MM3 Eosinophils # (Auto) 0.5 TH/MM3 Basophils # (Auto) 0.0 TH/MM3 CBC Comment DIFF FINAL Differential Comment Blood Urea Nitrogen 13 MG/DL Creatinine 0.47 MG/DL Random Glucose 100 MG/DL Calcium Level 8.0 MG/DL Sodium Level 141 MEQ/L Potassium Level 3.2 MEQ/L Chloride Level 106 MEQ/L Carbon Dioxide Level 29.4 MEQ/L Anion Gap 6 MEQ/L Estimat Glomerular Filtration Rate 140 ML/MIN Date/Time Source Procedure Growth Status 06/03/17 07:50 Blood Peripheral Aerobic Blood Culture - Preliminary NO GROWTH IN 3 DAYS Resulted 06/03/17 07:50 Blood Peripheral Anaerobic Blood Culture - Preliminary NO GROWTH IN 3 DAYS Resulted 06/03/17 07:50 Stool Stool Stool Pus (LONNIE) - Final NO WBC'S SEEN Complete Vitals/IOs Vital Signs Date Time Temp Pulse Resp B/P (MAP) Pulse Ox O2 Delivery O2 Flow Rate FiO2 06/06/17 12:46 97.8 82 18 129/57 (81) 98 06/03/17 12:14 Room Air Intake and Output 06/06/17 06/06/17 06/07/17 08:00 16:00 00:00 Intake Total 1178 ml Output Total 1 ml Balance 1177 ml Assessment & Plan Problem List: (1) Anxiety disorder, unspecified ICD Codes: F41.9 - Anxiety disorder, unspecified Assessment & Plan: Continue current psychotropic regimen. Brief supportive psychotherapy. Assessment & Plan Estimated LOS: days Justification for Cont. Inpt. There is no need for psychiatric admission. Problem Qualifiers (1) Anxiety disorder, unspecified: Qualified Codes: F41.1 - Generalized anxiety disorder Abdiel Garcia MD Jun 06, 2017 13:11
--- NOTE | 2017-06-06 14:29 | GIPROC ---
[facility] [address] [facility]. [facility], [id number] EGD PROCEDURE REPORT EXAM DATE: 06/06/2017 PATIENT NAME: Janie Givens MR #: [id number] BIRTHDATE: 1965 ATTENDING: Shae Sumner MD ORDER #: [id number] FORMULA CLERK: Kylie Garcia STATUS: inpatient INDICATIONS: The patient is a 52 yr old female here for an EGD due to nausea, vomiting, history of Crohn's disease PROCEDURE PERFORMED: EGD w/ biopsy MEDICATIONS: None and Per Anesthesia. TOPICAL ANESTHETIC: Viscous Xylocaine CONSENT: The patient understands the risks and benefits of the procedure and understands that these risks include, but are not limited to: sedation, allergic reaction, infection, perforation and/or bleeding. Alternative means of evaluation and treatment include, among others: physical exam, x-rays, and/or surgical intervention. The patient elects to proceed with this endoscopic procedure. medical equipment was checked for proper function. Hand hygiene and appropriate measures for infection prevention was taken. After the risks, benefits and alternatives of the procedure were thoroughly explained, Informed consent was verified, confirmed and timeout was successfully executed by the treatment team. The patient was anesthetized with topical anesthesia and the Pentax [id number] endoscope was introduced through the mouth and advanced to the second portion of the duodenum. Retroflexed views revealed a hiatal hernia The gastroscope was then slowly withdrawn and removed. Gastritis antrum-biopsy. Duodenum normal-biopsy esophagitis distal esophagus-biopsy. ADVERSE EVENTS: There were no complications. IMPRESSIONS: 1. Gastritis antrum-biopsy 2. Retroflexed views revealed a hiatal hernia RECOMMENDATIONS: 1. Await biopsy results. Biopsy results will not be ready for 7-10 days. If you don't hear from us in two weeks, call our office for biopsy results. 2. Anti-reflux regimen 3. Continue PPI PATIENT CONDITION: stable DISPOSITION: Inpatient REPEAT EXAM: Return 3 years EGD Shae Sumner MD eSigned: Shae Sumner MD 06/06/2017 2:29 PM cc:
[2017-06-06] MEDS ORDERED: DO NOT ADM ANY ANTICOAGULANT DRUGS PRN (14:33)
--- NOTE | 2017-06-06 14:35 | GIPROC ---
[facility] [address] [facility]. [facility] - [place], [address] COLONOSCOPY PROCEDURE REPORT EXAM DATE: 06/06/2017 PATIENT NAME: Janie Givens MR #: [id number] BIRTHDATE: 1965 ENDOSCOPIST: Shae Sumner MD ORDER #: [id number] ABRASIVE MIXER HELPER: Kylie Garcia STATUS: inpatient INDICATIONS: The patient is a 52 yr old female here for a colonoscopy due to history of Crohn's disease PROCEDURE PERFORMED: Colonoscopy with biopsy MEDICATIONS: None and Per Anesthesia. PREP QUALITY: good PREP TYPE:Other: ESTIMATED BLOOD LOSS: None CONSENT: The patient understands the risks and benefits of the procedure and understands that these risks include, but are not limited to: sedation, allergic reaction, infection, perforation and/or bleeding. Alternative means of evaluation and treatment include, among others: physical exam, x-rays, and/or surgical intervention. The patient elects to proceed with this endoscopic procedure. medical equipment was checked for proper function. Hand hygiene and appropriate measures for infection prevention was taken. After the risks, benefits and alternatives of the procedure were thoroughly explained, Informed consent was verified, confirmed and timeout was successfully executed by the treatment team. A digital exam revealed internal hemorrhoids The Pentax [id number] endoscope was introduced through the anus and advanced to the cecum, which was identified by both the appendix and ileocecal valve. The instrument was then slowly withdrawn as the colon was fully examined. COLON FINDINGS: Normal colonoscopy- random biopsy ascendinng, descending and rectum. Retroflexed views revealed internal hemorrhoids and Retroflexed views revealed small internal hemorrhoids The scope was then completely withdrawn from the patient and the procedure terminated. PROCEDURE WITHDRAWAL TIME:6minutes ADVERSE EVENTS: There were no complications. IMPRESSIONS: 1. Normal colonoscopy- random biopsy ascendinng, descending and rectum 2. Retroflexed views revealed internal hemorrhoids 3. Retroflexed views revealed small internal hemorrhoids 4. Revealed internal hemorrhoids RECOMMENDATIONS: 1. Await biopsy results. Biopsy results will not be ready for 7-10 days. If you don't hear from us in two weeks, call our office for results. 2. Benefiber 2 tsp daily 3. Probiotics from any [facility] or health food store 4. Yearly rectal exams RECALL: Return 3 years Colonoscopy Shae Sumner MD eSigned: Shae Sumner MD 06/06/2017 2:34 PM cc:
--- NOTE | 2017-06-06 15:55 | HHI.PR ---
Subjective Remarks Follow-up abdominal pain, nausea, vomiting. Patient just returned from EGD/ colonoscopy. States that she feels about the same as yesterday. Objective Vitals Vital Signs Date Time Temp Pulse Resp B/P (MAP) Pulse Ox O2 Delivery O2 Flow Rate FiO2 06/06/17 15:00 94 20 101/57 (72) 100 06/06/17 14:42 97.5 98 20 109/65 (80) 100 06/06/17 12:46 97.8 82 18 129/57 (81) 98 06/06/17 08:32 98.9 89 18 109/55 (73) 97 06/06/17 08:14 16 06/06/17 06:21 98.4 86 20 151/63 (92) 99 06/06/17 02:06 98.1 100 20 115/73 (87) 99 06/05/17 21:16 98.6 87 20 156/73 (100) 100 06/05/17 16:59 99.0 87 18 136/61 (86) 100 I/O 06/05/17 06/05/17 06/05/17 06/06/17 06/06/17 06/06/17 07:00 15:00 23:00 07:00 15:00 23:00 Intake Total 100 ml 1178 ml 300 ml Output Total 1 ml Balance 100 ml 1177 ml 300 ml Intake IV Total 100 ml 1178 ml Other 300 ml Output Stool Total 1 ml # Voids 2 5 1 # Bowel Movements 2 Result Diagram: 06/06/17 0555 06/06/17 0555 Imaging Last Impressions Chest X-Ray 06/03/17 0651 Signed Impressions: Service Date/Time: Saturday, June 03, 2017 07:11 - CONCLUSION: No acute cardiopulmonary abnormality is identified. Nicholas Mayo MD Abdomen/Pelvis CT 06/03/17 0000 Signed Impressions: Service Date/Time: Saturday, June 03, 2017 10:58 - CONCLUSION: Mild nonspecific fluid and gaseous distention of bowel. Tiny nonobstructing right kidney stone. Nicholas Weeks MD Objective Remarks General: No acute distress. Resting comfortably in bed. Heart: Regular rate and rhythm. No murmur. Lungs: Clear to auscultation bilaterally. No wheezes, rales, or rhonchi. Breathing is nonlabored. Abdomen: Soft, mild diffuse tenderness without rebound or guarding, mildly distended. Extremities: No lower extremity edema. Psych: Alert and oriented. Procedures None Urinary Catheter: No Vascular Central Line Catheter: No A/P Problem List: (1) Sepsis ICD Code: A41.9 - Sepsis, unspecified organism Status: Acute (2) Acute kidney injury ICD Code: N17.9 - Acute kidney failure, unspecified (3) Exacerbation of Crohn's disease ICD Code: K50.90 - Crohn's disease, unspecified, without complications Assessment and Plan 1. Severe sepsis: Likely GI source. Patient continues to have nausea and vomiting. Sepsis has resolved. 2. Lactic acidosis: Resolved. 3. Acute kidney injury: Improving. Continue IV fluids. 4. Nausea/vomiting: Patient has been having nausea and vomiting for the past few months. Continue TPN. Continue anti-emetics. Appreciate GI recommendations. Status post EGD/colonoscopy today. 5. Crohn's disease, exacerbation: Appreciate GI recommendations. Entocort recommended, but not available at this time. 6. Chronic pain: Continue pain medication. 7. History of bipolar disorder: Continue Cymbalta, Seroquel, diazepam. 8. History of seizure disorder: Continue Topamax. 9. History of DVT: Continue Xarelto. 10. History of bladder dysfunction: Continue bethanechol. 11. Anemia: No apparent bleeding. Monitor H/H. 12. Hypokalemia: Supplement potassium. Discharge Planning Pending clinical improvement. The patient has been on TPN at home, and this could likely be read started at discharge. At this time she is unable to take any medications by mouth. Problem Qualifiers (1) Sepsis: Qualified Codes: A41.9 - Sepsis, unspecified organism Ron Reynaga MD Jun 06, 2017 15:55
[2017-06-06] MEDS: PANTOPRAZOLE SODIUM 40 MG VIAL IV PUSH SCH (16:12)
[2017-06-06] MEDS: FAT EMULSION 20% INJ 250 ML (@10 mls/hr) IV-CENTRAL SCH (20:00)
[2017-06-06] MEDS: CLINIMIX 5/25 (Custom) 2000 mL- >42 mls/hr IV-CENTRAL SCH ×9 (20:00)
[2017-06-06 20:27] VITALS: BP 115/59; PULSE 93; RESP 20; TEMP 98.4; O2SAT 100
[2017-06-06] MEDS: fentaNYL 100 MCG/HR PATCH T-DERMAL SCH (20:46)
[2017-06-06] MEDS: TOPIRAMATE 200 MG TAB PO SCH ×2 (20:59→23:39)
[2017-06-06] MEDS: QUEtiapine FUMARATE 200 MG TAB PO SCH (21:00)
[2017-06-07] VITALS: BP 120/66; PULSE 98; RESP 20; TEMP 97.5; O2SAT 97
[2017-06-07] MEDS ORDERED: LORazepam 2 MG/ML VIAL IV PUSH ONE (00:15)
[2017-06-07] MEDS: metroNIDAZOLE 500 MG INJ 100 ML IV SCH ×3 (00:17→17:17)
[2017-06-07] MEDS: HYDROmorphone HCL PF 2 MG/ML VIAL IV PUSH PRN ×6 (00:52→23:30)
[2017-06-07] MEDS: ONDANSETRON INJ 8 MG in DEXTROSE 5% IN WATER INJ 50 ML IV PRN ×4 (04:23→17:33)
[2017-06-07 05:38] VITALS: BP 107/59; PULSE 94; RESP 20; TEMP 98; O2SAT 97
[2017-06-07] MEDS: CIPROFLOXACIN 400 MG PREMIX 200 ML IV SCH ×2 (05:54→16:20)
[2017-06-07] MEDS: ALBUTEROL SULFATE 90 MCG/ACT HFA 8 GM INHALER INH SCH ×5 (06:00→21:33)
[2017-06-07 07:00] LABS: BASOPHIL % 0.4 % (0.0-2.0); EOSINOPHIL # 0.5 TH/MM3 (0-0.4); EOSINOPHIL % 5.8 % (0.0-4.0); HEMATOCRIT 29.8 % (35.0-46.0); HEMOGLOBIN 10.3 GM/DL (11.6-15.3); LYMPH % 48.2 % (9.0-44.0); LYMPHOCYTE # 3.8 TH/MM3 (1.0-4.8); MEAN CELL VOLUME 94.3 FL (80.0-100.0); MEAN CORPUSCULAR HEMOGLOBIN 32.7 PG (27.0-34.0); MEAN CORPUSCULAR HGB CONC 34.6 % (32.0-36.0); MEAN PLATELET VOLUME 9.9 FL (7.0-11.0); MONO % 7.9 % (0.0-8.0); MONOCYTE # 0.6 TH/MM3 (0-0.9); NEUT % 37.7 % (16.0-70.0); PLATELET COUNT 208 TH/MM3 (150-450); RED BLOOD COUNT 3.16 MIL/MM3 (4.00-5.30); RED CELL DISTRIBUTION WIDTH 12.7 % (11.6-17.2); WHITE BLOOD COUNT 7.9 TH/MM3 (4.0-11.0)
[2017-06-07 07:15] LABS: BICARBONATE 28.4 MEQ/L (21.0-32.0); CALCIUM 8.3 MG/DL (8.5-10.1); CREATININE 0.66 MG/DL (0.50-1.00); PHOSPHORUS 3.4 MG/DL (2.5-4.9)
[2017-06-07 08:00] VITALS: BP 112/62; PULSE 96; RESP 16; TEMP 98.6; O2SAT 95
[2017-06-07] MEDS: LACTOBACILLUS ACIDOPHILUS TAB PO SCH ×2 (09:00→21:00)
[2017-06-07] MEDS: RIVAROXABAN 20 MG TAB PO SCH (09:00)
[2017-06-07] MEDS: TOPIRAMATE 25 MG TAB PO SCH (09:00)
[2017-06-07] MEDS: PREGABALIN 75 MG CAP PO SCH ×2 (09:00→21:00)
[2017-06-07] MEDS: lamoTRIgine 25 MG TAB PO SCH ×3 (09:00→17:18)
[2017-06-07] MEDS: BETHANECHOL CHL 25 MG TAB PO SCH ×3 (09:00→17:18)
[2017-06-07] MEDS: DRONABINOL 2.5 MG CAP PO SCH (09:00)
[2017-06-07] MEDS: DULoxetine HCl DR 30 MG CAP PO SCH (09:00)
[2017-06-07] MEDS: MORPHINE SULFATE 60 MG CONTROLLED RELEASE TAB PO SCH (09:00)
[2017-06-07] MEDS: DIAZEPAM 5 MG TAB PO SCH ×2 (09:00→21:00)
[2017-06-07] MEDS: DULoxetine HCl DR 60 MG CAP PO SCH (09:00)
--- NOTE | 2017-06-07 09:21 | HHI.PR ---
Subjective Remarks Patient seen and examined this morning. Vitals are stable and the patient's afebrile. States she did not sleep well. Ate soup last night, it stayed down. She is asking if she can have IV ativan since she cannot take the PO medications prescribed. She is also asking for a heating pad for her neck. Objective Vital Signs Date Time Temp Pulse Resp B/P (MAP) Pulse Ox O2 Delivery O2 Flow Rate FiO2 06/07/17 05:38 98.0 94 20 107/59 (75) 97 06/07/17 00:00 97.5 98 20 120/66 (84) 97 06/06/17 20:27 98.4 93 20 115/59 (77) 100 06/06/17 17:01 16 06/06/17 15:00 94 20 101/57 (72) 100 06/06/17 14:42 97.5 98 20 109/65 (80) 100 06/06/17 12:46 97.8 82 18 129/57 (81) 98 I/O 06/06/17 06/06/17 06/06/17 06/07/17 06/07/17 06/07/17 07:00 15:00 23:00 07:00 15:00 23:00 Intake Total 1178 ml 300 ml Output Total 1 ml Balance 1177 ml 300 ml Intake IV Total 1178 ml Other 300 ml Output Stool Total 1 ml # Voids 1 1 Result Diagram: 06/07/17 0600 06/07/17 0600 Imaging Last Impressions Chest X-Ray 06/03/17 0651 Signed Impressions: Service Date/Time: Saturday, June 03, 2017 07:11 - CONCLUSION: No acute cardiopulmonary abnormality is identified. Nicholas Mayo MD Abdomen/Pelvis CT 06/03/17 0000 Signed Impressions: Service Date/Time: Saturday, June 03, 2017 10:58 - CONCLUSION: Mild nonspecific fluid and gaseous distention of bowel. Tiny nonobstructing right kidney stone. Nicholas Weeks MD Objective Remarks GENERAL: laying in bed, shivering SKIN: Warm and dry. HEAD: Normocephalic. EYES: No scleral icterus. No injection or drainage. NECK: Supple, trachea midline. No JVD or lymphadenopathy. CARDIOVASCULAR: Regular rate and rhythm without murmurs, gallops, or rubs. RESPIRATORY: Breath sounds equal bilaterally. No accessory muscle use. GASTROINTESTINAL: Abdomen soft, diffusely tender, +BS MUSCULOSKELETAL: No cyanosis, or edema. NO calf tenderness A/P Problem List: (1) History of Crohn's disease ICD Code: Z87.19 - Personal history of other diseases of the digestive system Status: Acute (2) Abdominal pain ICD Code: R10.9 - Unspecified abdominal pain Status: Acute (3) Anxiety disorder, unspecified ICD Code: F41.9 - Anxiety disorder, unspecified Assessment and Plan 52-year-old female with a medical history significant for Crohn's disease, presented with abdominal pain Severe sepsis - Criteria met on admission - Lactic acidosis has resolved - Leukocytosis resolved - Sources consider GI Crohn's disease, N/V - Seen and evaluated by GI, entocort recommended but not available in hospital. - Continue TPN - S/P EGD/colonoscopy: Gastritis antrum biopsy, hiatal hernia, biopsies obtained , continue antireflux regimen, continue PPI - C. difficile negative Chronic Pain - Continue chronic pain meds Bipolar disorder, seizure disorder - Continue Cymbalta, Seroquel, diazepam, Topamax (unable to tolerate PO at this time) - requesting IV ativan, will have prn small dose available - Seen and evaluated by psychiatry, no need for psychiatric admission History DVT - Continue Xarelto History of bladder dysfunction - Continue home meds Discharge Planning PT eval for discharge needs Problem Qualifiers (1) Abdominal pain: Qualified Codes: R10.84 - Generalized abdominal pain (2) Anxiety disorder, unspecified: Qualified Codes: F41.1 - Generalized anxiety disorder Mimi Chau MD Jun 07, 2017 09:20
[2017-06-07] MEDS: POTASSIUM CHLOR 20 MEQ PREMIX 100 ML IV SCH ×2 (11:37→13:32)
[2017-06-07] MEDS: LORazepam 2 MG/ML VIAL IV PUSH PRN ×2 (11:38→21:24)
[2017-06-07 12:00] VITALS: BP 101/57; PULSE 89; RESP 16; TEMP 98.2; O2SAT 96
--- NOTE | 2017-06-07 14:46 | HHI.GIFU ---
Subjective Remarks Pt resting in bed. She reports vomiting x 1 today so she was unable to eat. Continued abdominal pain. Continued diarrhea. (Mary Abrams) Objective Vitals I&O Vital Signs Date Time Temp Pulse Resp B/P (MAP) Pulse Ox O2 Delivery O2 Flow Rate FiO2 06/07/17 12:00 98.2 89 16 101/57 (72) 96 06/07/17 08:00 98.6 96 16 112/62 (79) 95 06/07/17 05:38 98.0 94 20 107/59 (75) 97 06/07/17 00:00 97.5 98 20 120/66 (84) 97 06/06/17 20:27 98.4 93 20 115/59 (77) 100 06/06/17 17:01 16 06/06/17 15:00 94 20 101/57 (72) 100 06/06/17 14:42 97.5 98 20 109/65 (80) 100 I/O 06/06/17 06/06/17 06/06/17 06/07/17 06/07/17 06/07/17 07:00 15:00 23:00 07:00 15:00 23:00 Intake Total 1178 ml 300 ml 200 ml Output Total 1 ml Balance 1177 ml 300 ml 200 ml Intake IV Total 1178 ml 200 ml Other 300 ml Output Stool Total 1 ml # Voids 1 1 Laboratory Laboratory Tests Test 06/07/17 06:00 White Blood Count 7.9 Red Blood Count 3.16 Hemoglobin 10.3 Hematocrit 29.8 Mean Corpuscular Volume 94.3 Mean Corpuscular Hemoglobin 32.7 Mean Corpuscular Hemoglobin Concent 34.6 Red Cell Distribution Width 12.7 Platelet Count 208 Mean Platelet Volume 9.9 Neutrophils (%) (Auto) 37.7 Lymphocytes (%) (Auto) 48.2 Monocytes (%) (Auto) 7.9 Eosinophils (%) (Auto) 5.8 Basophils (%) (Auto) 0.4 Neutrophils # (Auto) 3.0 Lymphocytes # (Auto) 3.8 Monocytes # (Auto) 0.6 Eosinophils # (Auto) 0.5 Basophils # (Auto) 0.0 CBC Comment DIFF FINAL Differential Comment Blood Urea Nitrogen 16 Creatinine 0.66 Random Glucose 94 Calcium Level 8.3 Phosphorus Level 3.4 Magnesium Level 2.0 Sodium Level 141 Potassium Level 3.4 Chloride Level 106 Carbon Dioxide Level 28.4 Anion Gap 7 Estimat Glomerular Filtration Rate 95 Date/Time Source Procedure Growth Status 06/03/17 07:50 Blood Peripheral Aerobic Blood Culture - Preliminary NO GROWTH IN 4 DAYS Resulted 06/03/17 07:50 Blood Peripheral Anaerobic Blood Culture - Preliminary NO GROWTH IN 4 DAYS Resulted 06/03/17 07:50 Stool Stool Stool Pus (LONNIE) - Final NO WBC'S SEEN Complete Imaging Last Impressions Chest X-Ray 06/03/17 0651 Signed Impressions: Service Date/Time: Saturday, June 03, 2017 07:11 - CONCLUSION: No acute cardiopulmonary abnormality is identified. Nicholas Mayo MD Abdomen/Pelvis CT 06/03/17 0000 Signed Impressions: Service Date/Time: Saturday, June 03, 2017 10:58 - CONCLUSION: Mild nonspecific fluid and gaseous distention of bowel. Tiny nonobstructing right kidney stone. Nicholas Weeks MD Physical Exam HEENT: Normocephalic; atraumatic CHEST: CTA CARDIAC: RRR ABDOMEN: Soft, mildly distended, diffuse TTP; bowel sounds active EXTREMITIES: No clubbing, cyanosis, or edema. SKIN: Normal; no rash; no jaundice. HOUSE PARENT: No focal deficits; alert and oriented times three. (Mary Abrams) Assessment and Plan Plan ASSESSMENT: - Crohns disease- managed by Dr. Luna in [facility], pt reports plan was to put her on Entyvio but she is still waiting for insurance approval. Resistance to Remicade. States can not take steroids because it affects her bipolar. S/P EGD and colonoscopy yesterday revealing gastritis and internal hemorrhoids, otherwise normal. Random colon biopsies taken, pending. Continued diarrhea- C. diff negative. - Gastroparesis- receives TPN at home, previously through port which became infected an had to be removed so then she was receiving it through a PICC line. Continued vomiting x 1 today, was unable to eat full liquids. PLAN - Full liquid diet - Continue TPN - Random colon biopsies pending - EGD biopsy pending - Continue Protonix - Cholestyramine - Will discuss Entocort with pharmacy - Supportive care This patient has been seen and examined by myself and Dr. Sumner and this note is written on her behalf (Mary Abrams) Mary Abrams Jun 07, 2017 14:46 Shae Sumner MD Jun 07, 2017 19:31
[2017-06-07 16:00] VITALS: BP 114/56; PULSE 101; RESP 16; TEMP 98.7; O2SAT 97
[2017-06-07] MEDS: PANTOPRAZOLE SODIUM 40 MG VIAL IV PUSH SCH (17:18)
[2017-06-07 20:00] VITALS: BP 95/50; PULSE 100; RESP 18; TEMP 98.5; O2SAT 97
[2017-06-07] MEDS: QUEtiapine FUMARATE 200 MG TAB PO SCH (21:00)
[2017-06-07] MEDS: CLINIMIX 5/25 (Custom) 2000 mL- >42 mls/hr IV-CENTRAL SCH ×9 (23:22)
[2017-06-07] MEDS: FAT EMULSION 20% INJ 250 ML (@10 mls/hr) IV-CENTRAL SCH (23:22)
[2017-06-08] VITALS: BP 97/53; PULSE 92; RESP 18; TEMP 98.2; O2SAT 96
[2017-06-08] MEDS: ONDANSETRON INJ 8 MG in DEXTROSE 5% IN WATER INJ 50 ML IV PRN ×4 (03:59→18:13)
[2017-06-08] MEDS: metroNIDAZOLE 500 MG INJ 100 ML IV SCH ×3 (03:59→19:13)
[2017-06-08 04:00] VITALS: BP 114/62; PULSE 109; RESP 18; TEMP 98.2; O2SAT 98
[2017-06-08] MEDS: CIPROFLOXACIN 400 MG PREMIX 200 ML IV SCH ×2 (04:52→18:17)
[2017-06-08] MEDS: LORazepam 2 MG/ML VIAL IV PUSH PRN ×3 (04:53→23:32)
[2017-06-08] MEDS: HYDROmorphone HCL PF 2 MG/ML VIAL IV PUSH PRN ×5 (05:47→22:35)
[2017-06-08] MEDS: ALBUTEROL SULFATE 90 MCG/ACT HFA 8 GM INHALER INH SCH ×3 (06:00→18:00)
[2017-06-08 08:00] VITALS: BP 95/55; PULSE 96; RESP 16; TEMP 98.2; O2SAT 95
[2017-06-08 08:12] LABS: AUTOMATED NEUTROPHIL # 7.2 TH/MM3 (1.8-7.7); BASOPHIL # 0.1 TH/MM3 (0-0.2); BASOPHIL % 0.7 % (0.0-2.0); EOSINOPHIL # 0.5 TH/MM3 (0-0.4); EOSINOPHIL % 4.5 % (0.0-4.0); HEMATOCRIT 31.3 % (35.0-46.0); HEMOGLOBIN 10.5 GM/DL (11.6-15.3); LYMPH % 26.7 % (9.0-44.0); LYMPHOCYTE # 3.2 TH/MM3 (1.0-4.8); MEAN CELL VOLUME 94.8 FL (80.0-100.0); MEAN CORPUSCULAR HEMOGLOBIN 31.7 PG (27.0-34.0); MEAN CORPUSCULAR HGB CONC 33.5 % (32.0-36.0); MEAN PLATELET VOLUME 10.7 FL (7.0-11.0); MONOCYTE # 1.1 TH/MM3 (0-0.9); NEUT % 59.1 % (16.0-70.0); PLATELET COUNT 221 TH/MM3 (150-450); RED CELL DISTRIBUTION WIDTH 13.2 % (11.6-17.2); WHITE BLOOD COUNT 12.1 TH/MM3 (4.0-11.0)
[2017-06-08] MEDS: LACTOBACILLUS ACIDOPHILUS TAB PO SCH ×2 (09:00→21:00)
[2017-06-08] MEDS: lamoTRIgine 25 MG TAB PO SCH ×3 (09:00→18:00)
[2017-06-08] MEDS: DULoxetine HCl DR 30 MG CAP PO SCH (09:00)
[2017-06-08] MEDS: DULoxetine HCl DR 60 MG CAP PO SCH (09:00)
[2017-06-08] MEDS: DRONABINOL 2.5 MG CAP PO SCH (09:00)
[2017-06-08] MEDS: MORPHINE SULFATE 60 MG CONTROLLED RELEASE TAB PO SCH (09:00)
[2017-06-08] MEDS: TOPIRAMATE 25 MG TAB PO SCH (09:00)
[2017-06-08] MEDS: BETHANECHOL CHL 25 MG TAB PO SCH ×3 (09:00→21:21)
[2017-06-08] MEDS: PREGABALIN 75 MG CAP PO SCH ×2 (09:00→21:00)
[2017-06-08] MEDS: CHOLESTYRAMINE 4 GM PACKET PO SCH (09:00)
[2017-06-08] MEDS: RIVAROXABAN 20 MG TAB PO SCH (09:00)
[2017-06-08] MEDS: DIAZEPAM 5 MG TAB PO SCH ×2 (09:00→21:00)
--- NOTE | 2017-06-08 09:20 | HHI.PR ---
Subjective Remarks Patient seen and examined this morning. Vitals are stable and the patient's afebrile. Says her meds are all wrong. Ate pudding yesterday, stayed down. Some abdominal pain but better. Objective Vital Signs Date Time Temp Pulse Resp B/P (MAP) Pulse Ox O2 Delivery O2 Flow Rate FiO2 06/08/17 04:00 98.2 109 18 114/62 (79) 98 06/08/17 00:00 98.2 92 18 97/53 (68) 96 06/07/17 20:00 98.5 100 18 95/50 (65) 97 06/07/17 16:00 98.7 101 16 114/56 (75) 97 06/07/17 12:00 98.2 89 16 101/57 (72) 96 I/O 06/07/17 06/07/17 06/07/17 06/08/17 06/08/17 06/08/17 06:59 14:59 22:59 06:59 14:59 22:59 Intake Total 300 ml 1470 ml Balance 300 ml 1470 ml Intake IV Total 300 ml 1470 ml # Voids 1 3 Result Diagram: 06/08/17 0630 06/07/17 0600 Imaging Last Impressions Chest X-Ray 06/03/17 0651 Signed Impressions: Service Date/Time: Saturday, June 03, 2017 07:11 - CONCLUSION: No acute cardiopulmonary abnormality is identified. Nicholas Mayo MD Abdomen/Pelvis CT 06/03/17 0000 Signed Impressions: Service Date/Time: Saturday, June 03, 2017 10:58 - CONCLUSION: Mild nonspecific fluid and gaseous distention of bowel. Tiny nonobstructing right kidney stone. Nicholas Weeks MD Objective Remarks GENERAL: sitting up in bed, SKIN: Warm and dry. HEAD: Normocephalic. EYES: No scleral icterus. No injection or drainage. NECK: Supple, trachea midline. No JVD or lymphadenopathy. CARDIOVASCULAR: Regular rate and rhythm without murmurs, gallops, or rubs. RESPIRATORY: Breath sounds equal bilaterally. No accessory muscle use. GASTROINTESTINAL: Abdomen soft, diffusely tender, +BS MUSCULOSKELETAL: No cyanosis, or edema. NO calf tenderness A/P Problem List: (1) History of Crohn's disease ICD Code: Z87.19 - Personal history of other diseases of the digestive system Status: Acute (2) Abdominal pain ICD Code: R10.9 - Unspecified abdominal pain Status: Acute (3) Anxiety disorder, unspecified ICD Code: F41.9 - Anxiety disorder, unspecified Assessment and Plan 52-year-old female with a medical history significant for Crohn's disease, presented with abdominal pain Severe sepsis - Criteria met on admission - Lactic acidosis has resolved - Leukocytosis resolved - Sources consider GI Crohn's disease, N/V - Seen and evaluated by GI, entocort recommended but not available in hospital. GI states they will discuss with pharmacy. I spoke with pharmacy, only way to get it GI would need to reach out to director and earliest medication would be here is Wed. Will deferr this to GI if they want to move forward with it or seek alternative. - Continue TPN, cont protonix, cholestyramine - S/P EGD/colonoscopy: Gastritis antrum biopsy, hiatal hernia, biopsies obtained , continue antireflux regimen, continue PPI - C. difficile negative Chronic Pain - Continue chronic pain meds Bipolar disorder, seizure disorder - Continue Cymbalta, Seroquel, diazepam, Topamax (unable to tolerate PO at this time) - requesting IV ativan, will have prn small dose available - Seen and evaluated by psychiatry, no need for psychiatric admission History DVT - Continue Xarelto History of bladder dysfunction - Continue home meds Discharge Planning PT eval for discharge needs Problem Qualifiers (1) Abdominal pain: Qualified Codes: R10.84 - Generalized abdominal pain (2) Anxiety disorder, unspecified: Qualified Codes: F41.1 - Generalized anxiety disorder Mimi Chau MD Jun 08, 2017 09:20
[2017-06-08 11:47] LABS: BICARBONATE 27.7 MEQ/L (21.0-32.0); CALCIUM 8.4 MG/DL (8.5-10.1); CREATININE 0.59 MG/DL (0.50-1.00)
[2017-06-08 12:00] VITALS: BP 102/56; PULSE 102; RESP 18; TEMP 98.6; O2SAT 97
[2017-06-08 16:00] VITALS: BP 95/52; PULSE 107; RESP 18; TEMP 98.1; O2SAT 98
[2017-06-08] MEDS: PANTOPRAZOLE SODIUM 40 MG VIAL IV PUSH SCH (18:18)
[2017-06-08 20:00] VITALS: BP 102/57; PULSE 103; RESP 18; TEMP 98.5; O2SAT 96
[2017-06-08] MEDS: TOPIRAMATE 200 MG TAB PO SCH (21:00)
[2017-06-08] MEDS: QUEtiapine FUMARATE 200 MG TAB PO SCH (21:00)
[2017-06-09] VITALS: BP 144/68; PULSE 82; RESP 18; TEMP 97; O2SAT 93
[2017-06-09] MEDS: FAT EMULSION 20% INJ 250 ML (@10 mls/hr) IV-CENTRAL SCH ×2 (02:17→21:39)
[2017-06-09] MEDS: CLINIMIX 5/25 (Custom) 2000 mL- >42 mls/hr IV-CENTRAL SCH ×18 (02:18→21:39)
[2017-06-09] MEDS: metroNIDAZOLE 500 MG INJ 100 ML IV SCH ×3 (02:19→21:39)
[2017-06-09] MEDS: HYDROmorphone HCL PF 2 MG/ML VIAL IV PUSH PRN ×6 (02:24→22:08)
[2017-06-09] MEDS: ONDANSETRON INJ 8 MG in DEXTROSE 5% IN WATER INJ 50 ML IV PRN ×6 (02:37→21:41)
[2017-06-09 04:00] VITALS: BP 109/75; PULSE 106; RESP 18; TEMP 97.9; O2SAT 96
[2017-06-09] MEDS: CIPROFLOXACIN 400 MG PREMIX 200 ML IV SCH ×2 (05:03→17:43)
[2017-06-09] MEDS: ALBUTEROL SULFATE 90 MCG/ACT HFA 8 GM INHALER INH SCH ×5 (05:04→23:28)
--- NOTE | 2017-06-09 08:30 | HHI.PR ---
Subjective Remarks Patient seen and examined this morning. Vitals are stable and the patient's afebrile. Feels significant better than previous. Medication for Crohns has been called into her [facility] and is available. She is on TPN at home. Has not taken her medications at home for months. She at soup yesterday, stayed down with any issues. She wants to know if she can go to rehab, explained physically she did not qualify. She is worried about being home with no one to take care of her.She has a doctor who comes to her home. She is willing to try and take her seizure medication today, after she has a dose of zofran. Objective Vital Signs Date Time Temp Pulse Resp B/P (MAP) Pulse Ox O2 Delivery O2 Flow Rate FiO2 06/09/17 04:00 97.9 106 18 109/75 (86) 96 06/09/17 00:00 97.0 82 18 144/68 (93) 93 06/08/17 20:00 98.5 103 18 102/57 (72) 96 06/08/17 16:00 98.1 107 18 95/52 (66) 98 06/08/17 12:00 98.6 102 18 102/56 (71) 97 I/O 06/08/17 06/08/17 06/08/17 06/09/17 06/09/17 06/09/17 07:00 15:00 23:00 07:00 15:00 23:00 # Voids 3 6 Result Diagram: 06/08/17 0630 06/08/17 1030 Imaging Last Impressions Chest X-Ray 06/03/17 0651 Signed Impressions: Service Date/Time: Saturday, June 03, 2017 07:11 - CONCLUSION: No acute cardiopulmonary abnormality is identified. Nicholas Mayo MD Abdomen/Pelvis CT 06/03/17 0000 Signed Impressions: Service Date/Time: Saturday, June 03, 2017 10:58 - CONCLUSION: Mild nonspecific fluid and gaseous distention of bowel. Tiny nonobstructing right kidney stone. Nicholas Weeks MD Objective Remarks GENERAL: sitting up in bed, SKIN: Warm and dry. HEAD: Normocephalic. EYES: No scleral icterus. No injection or drainage. NECK: Supple, trachea midline. No JVD or lymphadenopathy. CARDIOVASCULAR: Regular rate and rhythm without murmurs, gallops, or rubs. RESPIRATORY: Breath sounds equal bilaterally. No accessory muscle use. GASTROINTESTINAL: Abdomen soft, minimal tenderness, +BS MUSCULOSKELETAL: No cyanosis, or edema. NO calf tenderness A/P Problem List: (1) History of Crohn's disease ICD Code: Z87.19 - Personal history of other diseases of the digestive system Status: Acute (2) Abdominal pain ICD Code: R10.9 - Unspecified abdominal pain Status: Acute (3) Anxiety disorder, unspecified ICD Code: F41.9 - Anxiety disorder, unspecified Assessment and Plan 52-year-old female with a medical history significant for Crohn's disease, presented with abdominal pain Severe sepsis - Criteria met on admission - Lactic acidosis has resolved - Leukocytosis resolved - Sources consider GI Crohn's disease, N/V - Seen and evaluated by GI, entocort recommended but not available in hospital. (is at her local [facility] available for her to start as an outpatient) - Continue TPN, cont protonix, cholestyramine - S/P EGD/colonoscopy: Normal colonoscopy, gastritis - C. difficile negative Chronic Pain - Continue chronic pain meds Bipolar disorder, seizure disorder - Continue Cymbalta, Seroquel, diazepam, Topamax - requesting IV ativan, will have prn small dose available - Seen and evaluated by psychiatry, no need for psychiatric admission History DVT - Continue Xarelto History of bladder dysfunction - Continue home meds Discharge Planning NO PT needs upon d/c D/C home tomorrow with home health Problem Qualifiers (1) Abdominal pain: Qualified Codes: R10.84 - Generalized abdominal pain (2) Anxiety disorder, unspecified: Qualified Codes: F41.1 - Generalized anxiety disorder Mimi Chau MD Jun 09, 2017 08:30
[2017-06-09 08:34] VITALS: BP 97/55; PULSE 97; RESP 20; TEMP 98.8; O2SAT 99
[2017-06-09] MEDS: lamoTRIgine 25 MG TAB PO SCH ×3 (08:49→17:56)
[2017-06-09] MEDS: MORPHINE SULFATE 60 MG CONTROLLED RELEASE TAB PO SCH (08:49)
[2017-06-09] MEDS: DULoxetine HCl DR 30 MG CAP PO SCH (08:49)
[2017-06-09] MEDS: PREGABALIN 75 MG CAP PO SCH ×2 (08:49→21:00)
[2017-06-09] MEDS: LACTOBACILLUS ACIDOPHILUS TAB PO SCH ×2 (08:49→21:00)
[2017-06-09] MEDS: DULoxetine HCl DR 60 MG CAP PO SCH (08:49)
[2017-06-09] MEDS: DRONABINOL 2.5 MG CAP PO SCH (08:49)
[2017-06-09] MEDS: CHOLESTYRAMINE 4 GM PACKET PO SCH (08:50)
[2017-06-09] MEDS: BETHANECHOL CHL 25 MG TAB PO SCH ×3 (08:50→17:56)
[2017-06-09] MEDS: DIAZEPAM 5 MG TAB PO SCH ×2 (08:50→21:00)
[2017-06-09] MEDS: RIVAROXABAN 20 MG TAB PO SCH (08:50)
--- NOTE | 2017-06-09 09:05 | HHI.FF ---
Face to Face Verification Diagnosis: (1) Abdominal pain (2) Exacerbation of Crohn's disease Home Health Nursing Order: Medical education Signs/symptoms of disease process Nursing assessment with vital signs I have seen patient Janie Givens on 06/09/17. My clinical findings support the need for the requested home health care services because: Ltd mobility - disease progression I certify that my clinical findings support that this patient is homebound because: Need for psychosocial assistance Mimi Chau MD Jun 09, 2017 09:05
[2017-06-09] MEDS: TOPIRAMATE 200 MG TAB PO SCH ×2 (10:09→21:00)
[2017-06-09] MEDS: LORazepam 2 MG/ML VIAL IV PUSH PRN ×2 (11:52→22:08)
[2017-06-09 12:33] VITALS: BP 111/57; PULSE 99; RESP 20; TEMP 99; O2SAT 100
[2017-06-09 16:25] VITALS: BP 91/64; PULSE 115; RESP 20; TEMP 99.2; O2SAT 99
--- NOTE | 2017-06-09 16:56 | HHI.GIFU ---
Subjective Remarks Pt resting in bed in NAD. Tolerating soup. Says she vomited her meds this morning but kept soup down. Diarrhea unchanged. (Magdalena Pérez SAWMILL MOULDER OPERATOR) Objective Vitals I&O Vital Signs Date Time Temp Pulse Resp B/P (MAP) Pulse Ox O2 Delivery O2 Flow Rate FiO2 06/09/17 12:33 99.0 99 20 111/57 (75) 100 06/09/17 08:34 98.8 97 20 97/55 (69) 99 06/09/17 04:00 97.9 106 18 109/75 (86) 96 06/09/17 00:00 97.0 82 18 144/68 (93) 93 06/08/17 20:00 98.5 103 18 102/57 (72) 96 I/O 06/08/17 06/08/17 06/08/17 06/09/17 06/09/17 06/09/17 07:00 15:00 23:00 07:00 15:00 23:00 Intake Total 1470 ml 154 ml Balance 1470 ml 154 ml Intake IV Total 1470 ml 154 ml # Voids 3 6 Laboratory Date/Time Source Procedure Growth Status 06/03/17 07:50 Blood Peripheral Aerobic Blood Culture - Final NO GROWTH IN 5 DAYS Complete 06/03/17 07:50 Blood Peripheral Anaerobic Blood Culture - Final NO GROWTH IN 5 DAYS Complete 06/03/17 07:50 Stool Stool Stool Pus (LONNIE) - Final NO WBC'S SEEN Complete Imaging Last Impressions Chest X-Ray 06/03/17 0651 Signed Impressions: Service Date/Time: Saturday, June 03, 2017 07:11 - CONCLUSION: No acute cardiopulmonary abnormality is identified. Nicholas Mayo MD Abdomen/Pelvis CT 06/03/17 0000 Signed Impressions: Service Date/Time: Saturday, June 03, 2017 10:58 - CONCLUSION: Mild nonspecific fluid and gaseous distention of bowel. Tiny nonobstructing right kidney stone. Nicholas Weeks MD Physical Exam HEENT: Normocephalic; atraumatic CHEST: CTA CARDIAC: RRR ABDOMEN: Soft, nondistended, diffuse TTP; bowel sounds active EXTREMITIES: No clubbing, cyanosis, or edema. SKIN: Normal; no rash; no jaundice. HELICOPTER DISPATCHER: No focal deficits; alert and oriented times three. (Magdalena Pérez) Assessment and Plan Plan ASSESSMENT: - Crohns disease- managed by Dr. Luna, pt reports plan was to put her on Entyvio but she is still waiting for insurance approval. Resistance to Remicade. States can not take steroids because it affects her bipolar. S/P EGD and colonoscopy yesterday revealing gastritis and internal hemorrhoids, otherwise normal. Random colon biopsies taken, pending. Continued diarrhea- C. diff negative. - Gastroparesis- receives TPN at home, previously through port which became infected an had to be removed so then she was receiving it through a PICC line. vomited meds 1 time today, kept down soup. plans for d/ c home with home health tomorrow PLAN - Full liquid diet - Continue TPN - await random EGD biopsies - Continue Protonix - Cholestyramine - entocort after d/c - f/u with GI after d/c - ok to d/c home with home health from GI standpoint - Supportive care This patient has been seen and examined by myself and Dr. Frey and this note is written on his behalf (Magdalena Pérez) Physician Comments Patient seen and examined Agree with above Continue with current supportive care Monitor labs Discharge could be contemplated once she is off TPN I would recommend advancing her diet even further (Luis Frey MD) Magdalena Pérez Jun 09, 2017 16:56 Luis Frey MD Jun 10, 2017 00:19
[2017-06-09] MEDS: PANTOPRAZOLE SODIUM 40 MG VIAL IV PUSH SCH (17:43)
[2017-06-09] MEDS: QUEtiapine FUMARATE 200 MG TAB PO SCH (21:00)
[2017-06-09 21:08] VITALS: BP 101/56; PULSE 97; RESP 18; TEMP 99; O2SAT 99
[2017-06-09] MEDS: fentaNYL 100 MCG/HR PATCH T-DERMAL SCH (22:07)
[2017-06-10] MEDS ORDERED: LORazepam 2 MG/ML VIAL IV PUSH ONE (00:15)
[2017-06-10] MEDS: metroNIDAZOLE 500 MG INJ 100 ML IV SCH ×3 (00:33→18:38)
[2017-06-10 00:39] VITALS: BP 96/53; PULSE 105; RESP 18; TEMP 98.8; O2SAT 96
[2017-06-10 05:24] VITALS: BP 95/57; PULSE 104; RESP 18; TEMP 99
[2017-06-10] MEDS: ALBUTEROL SULFATE 90 MCG/ACT HFA 8 GM INHALER INH SCH ×4 (06:00→22:12)
[2017-06-10] MEDS: CIPROFLOXACIN 400 MG PREMIX 200 ML IV SCH ×2 (06:18→16:15)
[2017-06-10] MEDS: HYDROmorphone HCL PF 2 MG/ML VIAL IV PUSH PRN ×5 (06:18→22:14)
[2017-06-10 08:00] VITALS: BP 111/51; PULSE 100; RESP 20; TEMP 98.2; O2SAT 99
[2017-06-10] MEDS: LORazepam 2 MG/ML VIAL IV PUSH PRN ×2 (08:13→22:14)
[2017-06-10] MEDS: DULoxetine HCl DR 30 MG CAP PO SCH (08:20)
[2017-06-10] MEDS: lamoTRIgine 25 MG TAB PO SCH ×3 (08:20→18:00)
[2017-06-10] MEDS: DULoxetine HCl DR 60 MG CAP PO SCH (08:20)
[2017-06-10] MEDS: DRONABINOL 2.5 MG CAP PO SCH (08:20)
[2017-06-10] MEDS: LACTOBACILLUS ACIDOPHILUS TAB PO SCH ×2 (08:20→19:43)
[2017-06-10] MEDS: MORPHINE SULFATE 60 MG CONTROLLED RELEASE TAB PO SCH (08:20)
[2017-06-10] MEDS: PREGABALIN 75 MG CAP PO SCH ×2 (08:20→19:43)
[2017-06-10] MEDS: DIAZEPAM 5 MG TAB PO SCH ×2 (08:21→19:43)
[2017-06-10] MEDS: CHOLESTYRAMINE 4 GM PACKET PO SCH (08:21)
[2017-06-10] MEDS: RIVAROXABAN 20 MG TAB PO SCH (08:21)
[2017-06-10] MEDS: TOPIRAMATE 200 MG TAB PO SCH ×2 (08:21→19:43)
[2017-06-10] MEDS: BETHANECHOL CHL 25 MG TAB PO SCH ×3 (08:21→18:00)
[2017-06-10] MEDS: ONDANSETRON INJ 8 MG in DEXTROSE 5% IN WATER INJ 50 ML IV PRN ×4 (09:14→17:33)
[2017-06-10 11:42] VITALS: BP 102/57; PULSE 101; RESP 20; TEMP 98.8; O2SAT 99
[2017-06-10] MEDS ORDERED: [UNRECOGNIZED DRUG - OTHER] (11:52)
--- NOTE | 2017-06-10 11:55 | HHI.DS ---
Discharge Summary Admission Date Jun 03, 2017 at 09:56 Discharge Date: Jun 10, 2017 Admitting Diagnosis sepsis, abdominal pain (1) Sepsis ICD Code: A41.9 - Sepsis, unspecified organism Diagnosis: Principal Status: Acute (2) Acute kidney injury ICD Code: N17.9 - Acute kidney failure, unspecified Diagnosis: Principal (3) Exacerbation of Crohn's disease ICD Code: K50.90 - Crohn's disease, unspecified, without complications Diagnosis: Principal Procedures EGD and colonoscopy Brief History - From Admission History of present illness from the admitting physician Patient is a 52-year-old female with an extensive GI history of known Crohn's disease, GERD, history of seizure disorder last seizure episode was about more than 4 weeks ago, history of chronic pain followed by brush painter with history of laminectomy fusion surgery of the neck. History of bipolar disorder. came in because of GI symptoms. Patient states that for the past couple of months now since March patient has been having exacerbation of her Crohn's disease. She has workup done with GI specialist and actually had a port placed on the left chest wall sometime in March 2017 for TPN which was removed because it got infected. Another PICC line was placed in then for TPN. She has been getting TPN for nutrition. She has been undergoing treatment for Crohn's disease with Remicade and was discontinued last February by her GI specialist as she was told that it is not working. In the interim from February 24 this time patient had been admitted twice in [facility] in [place] for hydration and symptomatic management. Intermittently she was placed on steroids however patient states that she doesn' t do well with it because of her bipolar disorder. Patient states that her pain comes in cycles and she is actually very compliant with her pain medications of MS Contin 60 twice a day, hydrocodone, and fentanyl 100 g every 3 days. However for the past few days has been unable to hold down any medications because of pain and nausea. Denies any fever at home but on evaluation here had a temperature. And was tachycardic Per patient she was due for an EGD colonoscopy this coming July 2017. Patient states also history of DVT 2 involving the right lower extremity and one on the right upper extremity which sounds like PICC line related. She is on Xarelto 20 mg daily. Patient came here today because of ongoing GI symptoms. Generalized weakness and dehydration. CBC/BMP: 06/08/17 0630 06/08/17 1030 Significant Findings Laboratory Tests Test 06/08/17 06:30 06/08/17 10:30 White Blood Count 12.1 TH/MM3 (4.0-11.0) Red Blood Count 3.30 MIL/MM3 (4.00-5.30) Hemoglobin 10.5 GM/DL (11.6-15.3) Hematocrit 31.3 % (35.0-46.0) Monocytes (%) (Auto) 9.0 % (0.0-8.0) Eosinophils (%) (Auto) 4.5 % (0.0-4.0) Monocytes # (Auto) 1.1 TH/MM3 (0-0.9) Eosinophils # (Auto) 0.5 TH/MM3 (0-0.4) Blood Urea Nitrogen 19 MG/DL (7-18) Calcium Level 8.4 MG/DL (8.5-10.1) Imaging Last Impressions Chest X-Ray 06/03/17 0651 Signed Impressions: Service Date/Time: Saturday, June 03, 2017 07:11 - CONCLUSION: No acute cardiopulmonary abnormality is identified. Nicholas Mayo MD Abdomen/Pelvis CT 06/03/17 0000 Signed Impressions: Service Date/Time: Saturday, June 03, 2017 10:58 - CONCLUSION: Mild nonspecific fluid and gaseous distention of bowel. Tiny nonobstructing right kidney stone. Nicholas Weeks MD PE at Discharge General: No acute distress. Resting comfortably in bed. Heart: Regular rate and rhythm. No murmur. Lungs: Clear to auscultation bilaterally. No wheezes, rales, or rhonchi. Breathing is nonlabored. Abdomen: Soft, mild diffuse tenderness without rebound or guarding, mildly distended. Extremities: No lower extremity edema. Psych: Alert and oriented. Pt update on day of discharge Patient reports some nausea but no vomiting. She wants to eat saltines. She does not believe she can take care of her self at home. She wants to be at a shelter facility for rehabilitation to get stronger prior to going home. Hospital Course 52-year-old female with a medical history significant for Crohn's disease, presented with abdominal pain. Patient meets sepsis criteria on presentation. The patient was treated with IV antibiotics. Sepsis syndrome resolved. She continues to have symptoms of nausea and vomiting likely secondary to Crohn's disease and gastroparesis. Patient was seen by GI and underwent EGD and colonoscopy. Colonoscopy was normal and EGD revealed gastritis. Patient to continue on TPN and follow-up outpatient with GI to be started on Entocort. The patient was put on anti-reflux medications. She continues to require TPN as she has not been able to tolerate enough oral nutrition. Patient was followed by dietitian and recommendations were followed. Patient also has had issues with chronic pain requiring narcotics which also contributed to her GI symptoms. Patient is aware of this. Regarding bipolar disorder, the patient is to continue her home medications. She was seen by psychiatry. The patient is discharged to shelter facility to continue rehabilitation , hopefully her oral nutrition will continue to improve to the point where she will no longer require TPN. Pt Condition on Discharge: Good Discharge Disposition: Discharge to SNF Discharge Time: > 30 minutes Discharge Instructions DIET: Follow Instructions for: As Tolerated, No Restrictions Activities you can perform: Regular-No Restrictions Follow up Referrals: Gastroenterology PCP Follow-up New Medications: Famotidine (Famotidine) 40 Mg Tab 40 MG PO BID, #60 TAB 0 Refills Ondansetron Odt (Zofran Odt) 4 Mg Tab 4 MG SL Q6HR PRN for Nausea/Vomiting, #30 TAB 0 Refills Oxycodone-Acetaminophen (Percocet) 5-325 mg Tab 1 TAB PO Q6H PRN for PAIN, #15 TAB 0 Refills [Nutrition ] () Clinimix E 4.25/25 @ 55 mls/hr with 20% lipids @ 10 mls/hr to provide a total of 1826 kcals and 56 gms protein. Request Triglycerides weekly while receiving lipids. Cholestyramine (Cholestyramine) 4 Gm/Pkt Powd 4 GM PO DAILY, #30 PACKET 1 packet contains 4 grams of cholestyramine. Fentanyl (Duragesic) 100 Mcg/Hour Patch.td72 1 PATCH T-DERMAL Q3D, #10 PATCH Rivaroxaban (Xarelto) 20 Mg Tab 20 MG PO DAILY, #60 TAB Changed Medications: Diazepam (Diazepam) 5 Mg Tab 5 MG PO BID PRN for ANXIETY, #20 TAB 0 Refills (Changed from: Diazepam (Valium) 5 Mg Tab 5 Mg PO BID) Continued Medications: Bethanechol Chloride (Urecholine) 25 Mg Tab 25 MG PO TID Dronabinol (Marinol) 2.5 Mg Cap 2.5 MG PO DAILY Lamotrigine (Lamictal) 25 Mg Tab 25 MG PO TID Pregabalin (Lyrica) 150 Mg Cap 150 MG PO BID Promethazine Hcl (Promethazine Hcl) 25 Mg Tab 25 MG PO TIDPRN FOR NAUSEA/VOMITING Quetiapine Fumarate (Seroquel) 300 Mg Tab 400 MG PO HS Topiramate (Topamax) 100 Mg Tab 150 MG PO DAILY Topiramate (Topamax) 200 Mg Tab 200 MG PO HS [aplisol] () 0.1 ML ID yearly [florastor] () 250 MG PO BID Dina Wu MD Jun 10, 2017 11:55
[2017-06-10] MEDS ORDERED: DIAZ5TAB PO (12:08)
[2017-06-10] MEDS ORDERED: XARE20TA PO (12:08)
[2017-06-10] MEDS ORDERED: FAMO40TA PO (12:08)
[2017-06-10] MEDS ORDERED: FENT100T T-DERMAL (12:08)
[2017-06-10] MEDS ORDERED: CHOL4POW4 PO (12:08)
[2017-06-10] MEDS ORDERED: ZOFR4TAB3 SL (14:18)
[2017-06-10] MEDS ORDERED: PERC5TAB12 PO (14:18)
--- NOTE | 2017-06-10 15:02 | HHI.GIFU ---
Subjective Remarks Pt in bed, attempting to order lunch and falling asleep. She is c/o rebound abd pain today. (Magdalena Pérez) Objective Vitals I&O Vital Signs Date Time Temp Pulse Resp B/P (MAP) Pulse Ox O2 Delivery O2 Flow Rate FiO2 06/10/17 11:42 98.8 101 20 102/57 (72) 99 06/10/17 08:00 98.2 100 20 111/51 (71) 99 06/10/17 05:24 99.0 104 18 95/57 (70) 06/10/17 00:39 98.8 105 18 96/53 (67) 96 06/09/17 21:08 99.0 97 18 101/56 (71) 99 06/09/17 16:25 99.2 115 20 91/64 (73) 99 I/O 06/09/17 06/09/17 06/09/17 06/10/17 06/10/17 06/10/17 07:00 15:00 23:00 07:00 15:00 23:00 Intake Total 1470 ml 154 ml 354 ml 120 ml Balance 1470 ml 154 ml 354 ml 120 ml Intake Oral 120 ml IV Total 1470 ml 154 ml 354 ml # Voids 6 3 # Bowel Movements 2 Laboratory Date/Time Source Procedure Growth Status 06/03/17 07:50 Blood Peripheral Aerobic Blood Culture - Final NO GROWTH IN 5 DAYS Complete 06/03/17 07:50 Blood Peripheral Anaerobic Blood Culture - Final NO GROWTH IN 5 DAYS Complete 06/03/17 07:50 Stool Stool Stool Pus (LONNIE) - Final NO WBC'S SEEN Complete Imaging Last Impressions Chest X-Ray 06/03/17 0651 Signed Impressions: Service Date/Time: Saturday, June 03, 2017 07:11 - CONCLUSION: No acute cardiopulmonary abnormality is identified. Nicholas Mayo MD Abdomen/Pelvis CT 06/03/17 0000 Signed Impressions: Service Date/Time: Saturday, June 03, 2017 10:58 - CONCLUSION: Mild nonspecific fluid and gaseous distention of bowel. Tiny nonobstructing right kidney stone. Nicholas Weeks MD Physical Exam HEENT: Normocephalic; atraumatic CHEST: CTA CARDIAC: RRR ABDOMEN: Soft, nondistended, diffuse TTP; bowel sounds active EXTREMITIES: No clubbing, cyanosis, or edema. SKIN: Normal; no rash; no jaundice. LEARNING SUPPORT TEACHER: lethargic (Magdalena Pérez) Assessment and Plan Plan ASSESSMENT: - abd pain, n/v, diarrhea - unclear etiology could be crohns vs gastroenteritis. c/o continued abd pain, n/v, diarrhea. stool studies negative. c diff neg. S/P EGD and colonoscopy yesterday revealing gastritis and internal hemorrhoids, otherwise normal. Random colon biopsies taken, pending. - hx Crohns disease- managed by Dr. Luna, pt reports plan was to put her on Entyvio but she is still waiting for insurance approval. Resistance to Remicade. States can not take steroids because it affects her bipolar. EGD/colonoscopy as above. - Gastroparesis- receives TPN at home, previously through port which became infected an had to be removed so then she was receiving it through a PICC line PLAN - ELYSSA - Continue TPN - await random EGD biopsies - Continue Protonix - entocort after d/c - f/u with GI after d/c - Supportive care This patient has been seen and examined by myself and Dr. Frey and this note is written on his behalf (Magdalena Pérez) Physician Comments Patient seen and examined Agree with above Continue with current supportive care Monitor labs (Luis Frey MD) Magdalena Pérez Jun 10, 2017 15:02 Luis Frey MD Jun 11, 2017 00:09
[2017-06-10] MEDS: PANTOPRAZOLE SODIUM 40 MG VIAL IV PUSH SCH (18:38)
[2017-06-10] MEDS: QUEtiapine FUMARATE 200 MG TAB PO SCH (19:43)
[2017-06-10 20:49] VITALS: BP 111/56; PULSE 91; RESP 17; TEMP 98.5; O2SAT 99
[2017-06-10] MEDS: FAT EMULSION 20% INJ 250 ML (@10 mls/hr) IV-CENTRAL SCH (22:12)
[2017-06-10] MEDS: CLINIMIX 5/25 (Custom) 2000 mL- >42 mls/hr IV-CENTRAL SCH ×9 (22:13)
[2017-06-11] MEDS: metroNIDAZOLE 500 MG INJ 100 ML IV SCH ×2 (01:29→08:34)
[2017-06-11 01:30] VITALS: BP 108/62; PULSE 88; RESP 16; TEMP 98.6; O2SAT 98
[2017-06-11] MEDS: CIPROFLOXACIN 400 MG PREMIX 200 ML IV SCH (04:52)
[2017-06-11] MEDS: HYDROmorphone HCL PF 2 MG/ML VIAL IV PUSH PRN ×2 (04:52→08:34)
[2017-06-11 05:00] VITALS: BP 105/65; PULSE 92; RESP 16; TEMP 98.1; O2SAT 99
[2017-06-11] MEDS: ALBUTEROL SULFATE 90 MCG/ACT HFA 8 GM INHALER INH SCH (05:26)
[2017-06-11 09:03] VITALS: BP 107/53; PULSE 93; RESP 20; TEMP 98.8; O2SAT 98
[2017-06-11] MEDS: LORazepam 2 MG/ML VIAL IV PUSH PRN (09:12)
[2017-06-16] MEDS ORDERED: FENT100T T-DERMAL (16:19)
== END 2017-06-11 10:15 | DRG 385 ==
LOC: NEPC 06:31 → NEDA 09:56 → N05A 14:58
PROVIDERS: ADMIT Family Medicine; ATTEND Family Medicine
PROC: 3E0436Z Introduction of Nutritional Substance into Central Vein, Percutaneous Approach (ICD-10-PCS; 2017-06-04)
PROC: 0DB38ZX Excision of Lower Esophagus, Via Natural or Artificial Opening Endoscopic, Diagnostic (ICD-10-PCS; 2017-06-06)
PROC: 0DBK8ZX Excision of Ascending Colon, Via Natural or Artificial Opening Endoscopic, Diagnostic (ICD-10-PCS; 2017-06-06)
PROC: 0DBP8ZX Excision of Rectum, Via Natural or Artificial Opening Endoscopic, Diagnostic (ICD-10-PCS; 2017-06-06)
PROC: 0DBM8ZX Excision of Descending Colon, Via Natural or Artificial Opening Endoscopic, Diagnostic (ICD-10-PCS; 2017-06-06)
PROC: 0DB68ZX Excision of Stomach, Via Natural or Artificial Opening Endoscopic, Diagnostic (ICD-10-PCS; principal; 2017-06-06 13:43)
PROC: 0DB98ZX Excision of Duodenum, Via Natural or Artificial Opening Endoscopic, Diagnostic (ICD-10-PCS; 2017-06-06 13:43)
DX: K50.90 Crohn's disease, unspecified, without complications (principal); A41.9 Sepsis, unspecified organism; R65.20 Severe sepsis without septic shock; N17.9 Acute kidney failure, unspecified; E87.2 Acidosis; K31.84 Gastroparesis; E86.0 Dehydration; D64.9 Anemia, unspecified; E87.6 Hypokalemia; M06.9 Rheumatoid arthritis, unspecified; M19.90 Unspecified osteoarthritis, unspecified site; G89.29 Other chronic pain; F31.9 Bipolar disorder, unspecified; F41.9 Anxiety disorder, unspecified; K44.9 Diaphragmatic hernia without obstruction or gangrene; K64.8 Other hemorrhoids; K29.70 Gastritis, unspecified, without bleeding; K20.9 Esophagitis, unspecified; G40.909 Epilepsy, unspecified, not intractable, without status epilepticus; Z86.718 Personal history of other venous thrombosis and embolism; Z79.02 Long term (current) use of antithrombotics/antiplatelets; Z87.891 Personal history of nicotine dependence
CPT/HCPCS: 71045; 74176; 80048; 80053; 81001; 82948; 83605; 83690; 83735; 84100; 84155; 85025; 85610; 85652; 85730; 86140; 87040; 87205; 87493; 87506; 88305; 88312; 93005; 96361; 96374; 96375; C9113; J0744; J1170; J1642; J2060; J2405; J2543; J2997; J3370; J3480; J7030; J7040; J7050

== ENCOUNTER 2017-07-14 17:25 | Emergency (ER) | payer MEDICARE, MEDICAID ==
[~2017-07-14 17:25] MED LIST changes: +CHOL4POW4 PO; -DIAZ5 PO; +DIAZ5TAB PO; +FAMO40TA PO; +FENT100T T-DERMAL; -METR-1 PO; +PERC5TAB12 PO; -PREV30CA36 PO; -TRAM50 PO; +XARE20TA PO; +ZOFR4TAB3 SL; -[UNRECOGNIZED DRUG - CODE] PO; +[UNRECOGNIZED DRUG - OTHER]
[2017-07-14 17:29] VITALS: BP 120/64; PULSE 119; RESP 16; TEMP 98.9; O2SAT 99
[2017-07-14] MEDS ORDERED: SODIUM CHLOR 0.9% 1000 ML INJ 1,000 ML IV ONE ×2 (19:26→21:30)
[2017-07-14] MEDS ORDERED: SODIUM CHLOR 0.9% 1000 ML INJ 800 ML IV ONE (19:26)
[2017-07-14] MEDS ORDERED: ONDANSETRON HCL 4 MG/2 ML VIAL IV PUSH ONE (19:30)
[2017-07-14] MEDS ORDERED: HYDROmorphone HCL PF 1 MG/ML VIAL IV PUSH ONE (19:30)
--- NOTE | 2017-07-14 19:38 | PD ---
HPI Chief Complaint: Abnormal Results Time Seen by Provider: 19:26 Travel History International Travel<30 days: No Contact w/Intl Traveler<30days: No Traveled to known affect area: No History of Present Illness HPI The patient is a 52-year-old female who presents to the emergency department via private vehicle for fever, headache, neck pain, nausea, vomiting , diarrhea, and myalgias. The patient has a long history of Crohn's disease with multiple hospitalizations in the last several months. The patient was recently hospitalized in May for an MRSA infection per her report. The patient recently had her port change, was advised to have blood pressures obtained last week on Friday at [facility]. They recommended admission, however, the patient did not want to be admitted. The patient received a dose of vancomycin yesterday and today was evaluated by their physician parking assistant home who recommended they come to [facility] for further evaluation of possible meningitis. She does complain of photophobia , headache, posterior neck pain, subjective fevers, nausea, vomiting, diarrhea, and abdominal pain. The patient states the nausea, vomiting, diarrhea, and abdominal pain of an chronic or secondary to Crohn's disease. The patient is currently taking Xarelto for history of DVT. Symptoms are moderate. PFSH Past Medical History Arthritis: Yes Asthma: Yes Blood Disorders: No Bipolar Disorder: Yes Anxiety: Yes Depression: Yes Cancer: Yes (CERVICAL CANCER) Cardiovascular Problems: No Chemotherapy: No COPD: No Cerebrovascular Accident: No Diabetes: No Diminished Hearing: No Endocrine: No Gastrointestinal Disorders: Yes (H/O C-diff, clostridium perfringens, colitis, bladder d/o, chrohns) GERD: Yes Genitourinary: No Headaches: Yes Hepatitis: No Hiatal Hernia: No Immune Disorder: No Kidney Stones: No Musculoskeletal: Yes (Osteoperosis) Neurologic: Yes Psychiatric: Yes Reproductive: No Respiratory: Yes Migraines: No Radiation Therapy: No Renal Failure: No Seizures: Yes Sickle Cell Disease: No Sleep Apnea: No Thyroid Disease: No Past Surgical History Abdominal Surgery: No AICD: No Appendectomy: No Arteriovenous Shunt: No Cardiac Surgery: No Cholecystectomy: Yes Ear Surgery: No Eye Surgery: No Genitourinary Surgery: No Gynecologic Surgery: Yes Hysterectomy: Yes (2006) Insulin Pump: No Joint Replacement: No Neurologic Surgery: Yes Oral Surgery: No Pacemaker: No Thoracic Surgery: No Tonsillectomy: Yes (CHILDHOOD) Other Surgery: Yes (BREAST REDUCTION 1999) Social History Alcohol Use: No Tobacco Use: No Substance Use: No Allergies-Medications (Allergen,Severity, Reaction): Coded Allergies: aspirin (Unverified Allergy, Severe, "ANAPHYLAXIS", 01/07/17) bupropion (Unverified Allergy, Severe, Seizures, 01/07/17) ibuprofen (Unverified Allergy, Severe, "ANAPHYLAXIS", 01/07/17) iodine (Unverified Allergy, Severe, "ANAPHYLAXIS", 01/07/17) potassium iodide (Unverified Allergy, Severe, "ANAPHYLAXIS", 01/07/17) povidone-iodine (Unverified Allergy, Severe, "ANAPHYLAXIS", 01/07/17) sodium iodide (Unverified Allergy, Severe, "ANAPHYLAXIS", 01/07/17) sodium iodide (Unverified Allergy, Severe, "ANAPHYLAXIS", 01/07/17) sumatriptan (Unverified Allergy, Severe, "ANAPHYLAXIS", 01/07/17) warfarin (Unverified Allergy, Severe, "ANAPHYLAXIS", 01/07/17) Uncoded Allergies: ALL FISH (Allergy, Severe, Anaphylaxis, 05/07/07) Reported Meds & Prescriptions Reported Meds & Active Scripts Active Duragesic (Fentanyl) 100 Mcg/Hour Patch.td72 1 Patch T-DERMAL Q72HRS Zofran Odt (Ondansetron Odt) 4 Mg Tab 4 Mg SL Q6HR PRN Percocet (Oxycodone-Acetaminophen) 5-325 mg Tab 1 Tab PO Q6H PRN Famotidine 40 Mg Tab 40 Mg PO BID Cholestyramine 4 Gm/Pkt Powd 4 Gm PO DAILY 1 packet contains 4 grams of cholestyramine. Xarelto (Rivaroxaban) 20 Mg Tab 20 Mg PO DAILY Diazepam 5 Mg Tab 5 Mg PO BID PRN [Nutrition ] Clinimix E 4.25/25 @ 55 mls/hr with 20% lipids @ 10 mls/hr to provide a total of 1826 kcals and 56 gms protein. Request Triglycerides weekly while receiving lipids. Reported Lamictal (Lamotrigine) 25 Mg Tab 25 Mg PO TID Lyrica (Pregabalin) 150 Mg Cap 150 Mg PO BID Topamax (Topiramate) 200 Mg Tab 200 Mg PO HS Topamax (Topiramate) 100 Mg Tab 150 Mg PO DAILY Seroquel (Quetiapine Fumarate) 300 Mg Tab 400 Mg PO HS Marinol (Dronabinol) 2.5 Mg Cap 2.5 Mg PO DAILY Urecholine (Bethanechol Chloride) 25 Mg Tab 25 Mg PO TID [florastor] 250 Mg PO BID Promethazine Hcl (Promethazine HCl) 25 Mg Tab 25 Mg PO TIDPRN FOR NAUSEA/VOMITING [aplisol] 0.1 Ml ID YEARLY Review of Systems Except as stated in HPI: all other systems reviewed are Neg General / Constitutional: Positive: Fever Eyes: Positive: Photophobia HENT: Positive: Headaches, Neck Pain Cardiovascular: No: Chest Pain or Discomfort Respiratory: No: Cough, Shortness of Breath Gastrointestinal: Positive: Nausea, Vomiting, Diarrhea, Abdominal Pain Genitourinary: No: Dysuria Musculoskeletal: Positive: Myalgias, Weakness Neurologic: Positive: Weakness Physical Exam Narrative GENERAL: Awake, alert, pleasant 52-year-old female who appears her stated age and is in no acute respiratory distress. SKIN: Focused skin assessment warm/dry. HEAD: Atraumatic. Normocephalic. EYES: Pupils equal and round. 3 mm bilateral and reactive. ENT: No nasal bleeding or discharge. Mucous membranes pink and moist. NECK: Trachea midline. No JVD. No meningeal signs, she is able to flex her neck and almost put her chin to her chest as well as rotate the head to left and right. Well-healed posterior neck scar. CARDIOVASCULAR: Regular, tachycardic with a heart rate of 115. Port in place right chest wall. RESPIRATORY: No accessory muscle use. Clear to auscultation. Breath sounds equal bilaterally. GASTROINTESTINAL: Abdomen soft, mild diffuse tenderness but no guarding or rigidity. MUSCULOSKELETAL: No obvious deformities. No clubbing. No cyanosis. No edema. NEUROLOGICAL: Awake and alert. No obvious cranial nerve deficits. Motor grossly within normal limits. Normal speech. PSYCHIATRIC: Appropriate mood and affect; insight and judgment normal. Data Data Last Documented VS Vital Signs Date Time Temp Pulse Resp B/P (MAP) Pulse Ox O2 Delivery O2 Flow Rate FiO2 07/14/17 22:00 Room Air 07/14/17 20:00 98 07/14/17 17:29 98.9 119 16 Orders Orders Sepsis Workup Initiated (07/14/17 ) Electrocardiogram (07/14/17:) Complete Blood Count With Diff (07/14/17:) Comprehensive Metabolic Panel (07/14/17) Lactic Acid Sepsis Protocol (07/14/17) Magnesium (Mg) (07/14/17) Lipase (07/14/17) Ckmb (Isoenzyme) Profile (07/14/17) Troponin I (07/14/17) Urinalysis - C+S If Indicated (07/14/17) Influenzae A/B Antigen (07/14/17) Blood Culture (07/14/17) Chest, Single Ap (07/14/17) Blood Glucose (07/14/17) Ecg Monitoring (07/14/17) Iv Access Insert/Monitor (07/14/17) Oximetry (07/14/17) Oxygen Administration (07/14/17) Hydromorphone Pf Inj (Dilaudid Pf Inj) (07/14/17 19:30) Ondansetron Inj (Zofran Inj) (07/14/17 19:30) Sodium Chlor 0.9% 1000 Ml Inj (Ns 1000 M (07/14/17 19:26) Sodium Chlor 0.9% 1000 Ml Inj (Ns 1000 M (07/14/17 19:26) Ct Brain W/O Iv Contrast(Rout) (07/14/17 ) Hydromorphone Pf Inj (Dilaudid Pf Inj) (07/14/17 20:30) Sodium Chlor 0.9% 1000 Ml Inj (Ns 1000 M (07/14/17 21:30) Labs Laboratory Tests Test 07/14/17 20:15 07/14/17 22:05 White Blood Count 9.2 TH/MM3 Red Blood Count 3.23 MIL/MM3 Hemoglobin 10.5 GM/DL Hematocrit 30.1 % Mean Corpuscular Volume 93.1 FL Mean Corpuscular Hemoglobin 32.4 PG Mean Corpuscular Hemoglobin Concent 34.8 % Red Cell Distribution Width 13.7 % Platelet Count 269 TH/MM3 Mean Platelet Volume 9.2 FL Neutrophils (%) (Auto) 34.1 % Lymphocytes (%) (Auto) 54.3 % Monocytes (%) (Auto) 5.6 % Eosinophils (%) (Auto) 5.7 % Basophils (%) (Auto) 0.3 % Neutrophils # (Auto) 3.1 TH/MM3 Lymphocytes # (Auto) 5.0 TH/MM3 Monocytes # (Auto) 0.5 TH/MM3 Eosinophils # (Auto) 0.5 TH/MM3 Basophils # (Auto) 0.0 TH/MM3 CBC Comment DIFF FINAL Differential Comment Blood Urea Nitrogen 22 MG/DL Creatinine 0.71 MG/DL Random Glucose 82 MG/DL Total Protein 6.6 GM/DL Albumin 3.1 GM/DL Calcium Level 8.6 MG/DL Magnesium Level 1.9 MG/DL Alkaline Phosphatase 80 U/L Aspartate Amino Transf (AST/SGOT) 18 U/L Alanine Aminotransferase (ALT/SGPT) 27 U/L Total Bilirubin 0.1 MG/DL Sodium Level 140 MEQ/L Potassium Level 3.6 MEQ/L Chloride Level 106 MEQ/L Carbon Dioxide Level 26.9 MEQ/L Anion Gap 7 MEQ/L Estimat Glomerular Filtration Rate 87 ML/MIN Lactic Acid Level 0.9 mmol/L Total Creatine Kinase 93 U/L Troponin I LESS THAN 0.02 NG/ML Lipase 117 U/L Urine Color YELLOW Urine Turbidity CLEAR Urine pH 6.5 Urine Specific [place] 1.020 Urine Protein NEG mg/dL Urine Glucose (UA) NEG mg/dL Urine Ketones NEG mg/dL Urine Occult Blood NEG Urine Nitrite NEG Urine Bilirubin NEG Urine Urobilinogen LESS THAN 2.0 MG/DL Urine Leukocyte Esterase NEG Urine RBC 2 /hpf Urine WBC 2 /hpf Urine Hyaline Casts 4 /lpf Urine Mucus FEW /lpf Microscopic Urinalysis Comment CATH-CULT NOT IND MDM Medical Decision Making Medical Screen Exam Complete: Yes Emergency Medical Condition: Yes Medical Record Reviewed: Yes Interpretation(s) EKG reveals normal sinus rhythm with a rate of 92. No ischemic changes or ectopy noted. Last Impressions Chest X-Ray 07/14/17 1926 Signed Impressions: Service Date/Time: Friday, July 14, 2017 19:40 - CONCLUSION: No acute disease. Nicholas Weeks MD Head CT 07/14/17 0000 Signed Impressions: Service Date/Time: Friday, July 14, 2017 22:39 - CONCLUSION: Normal examination. Nicholas Weeks MD Laboratory Tests Test 07/14/17 20:15 07/14/17 22:05 White Blood Count 9.2 TH/MM3 Red Blood Count 3.23 MIL/MM3 Hemoglobin 10.5 GM/DL Hematocrit 30.1 % Mean Corpuscular Volume 93.1 FL Mean Corpuscular Hemoglobin 32.4 PG Mean Corpuscular Hemoglobin Concent 34.8 % Red Cell Distribution Width 13.7 % Platelet Count 269 TH/MM3 Mean Platelet Volume 9.2 FL Neutrophils (%) (Auto) 34.1 % Lymphocytes (%) (Auto) 54.3 % Monocytes (%) (Auto) 5.6 % Eosinophils (%) (Auto) 5.7 % Basophils (%) (Auto) 0.3 % Neutrophils # (Auto) 3.1 TH/MM3 Lymphocytes # (Auto) 5.0 TH/MM3 Monocytes # (Auto) 0.5 TH/MM3 Eosinophils # (Auto) 0.5 TH/MM3 Basophils # (Auto) 0.0 TH/MM3 CBC Comment DIFF FINAL Differential Comment Blood Urea Nitrogen 22 MG/DL Creatinine 0.71 MG/DL Random Glucose 82 MG/DL Total Protein 6.6 GM/DL Albumin 3.1 GM/DL Calcium Level 8.6 MG/DL Magnesium Level 1.9 MG/DL Alkaline Phosphatase 80 U/L Aspartate Amino Transf (AST/SGOT) 18 U/L Alanine Aminotransferase (ALT/SGPT) 27 U/L Total Bilirubin 0.1 MG/DL Sodium Level 140 MEQ/L Potassium Level 3.6 MEQ/L Chloride Level 106 MEQ/L Carbon Dioxide Level 26.9 MEQ/L Anion Gap 7 MEQ/L Estimat Glomerular Filtration Rate 87 ML/MIN Lactic Acid Level 0.9 mmol/L Total Creatine Kinase 93 U/L Troponin I LESS THAN 0.02 NG/ML Lipase 117 U/L Urine Color YELLOW Urine Turbidity CLEAR Urine pH 6.5 Urine Specific [place] 1.020 Urine Protein NEG mg/dL Urine Glucose (UA) NEG mg/dL Urine Ketones NEG mg/dL Urine Occult Blood NEG Urine Nitrite NEG Urine Bilirubin NEG Urine Urobilinogen LESS THAN 2.0 MG/DL Urine Leukocyte Esterase NEG Urine RBC 2 /hpf Urine WBC 2 /hpf Urine Hyaline Casts 4 /lpf Urine Mucus FEW /lpf Microscopic Urinalysis Comment CATH-CULT NOT IND Differential Diagnosis Differential diagnosis includes meningitis, encephalitis, septicemia, bacteremia , viral syndrome, influenza, lactic acidosis, leukocytosis, SIRS, dehydration. Narrative Course The patient's port was accessed, labs are drawn and sent, the patient was placed on cardiac telemetry monitoring and continuous pulse oximetry monitoring. The patient was administered IV fluids, morphine, and Zofran for her symptoms. Blood culture and lactic acid were sent to lab. Patient is not a candidate for lumbar puncture as she is currently on Xarelto. The patient is nonfocal on exam. Records from [facility] revealed that the patient had blood cultures performed on July 11, 2017 at 2015, no growth at 2 days per the records obtained from [facility]. CT brain is negative, no evidence of subarachnoid hemorrhage. White count is normal. Lactic acid is unremarkable. Chest x-ray is negative. Influenza screen is negative. Patient appears to have viral syndrome, appears to have meningitis. Patient is advised to follow-up with her primary physician. She will be provided a copy of her CT results and lab results at discharge. She is stable for outpatient follow-up. Diagnosis Primary Impression: Flu-like symptoms Additional Impression: Cephalgia Qualified Codes: R51 - Headache Patient Instructions: General Instructions Additional Instructions: Please provide the patient a copy of her CT results and lab results at discharge. Follow-up with your primary physician. Return if symptoms worsen or progress. Disposition: 01 DISCHARGE HOME Condition: Stable Lázaro Benoit MD Jul 14, 2017 19:38
[2017-07-14 20:00] VITALS: O2SAT 98
--- NOTE | 2017-07-14 20:28 | RADRPT ---
EXAM DATE/TIME: 07/14/2017 19:40 [facility] COMPARISON: No previous studies available for comparison. INDICATIONS : Fever. MEDICAL HISTORY : A-fib. SURGICAL HISTORY : Infusaport. ENCOUNTER: Initial ACUITY: 1 day PAIN SCORE: 0/10 LOCATION: Bilateral chest FINDINGS: A single view of the chest demonstrates the lungs to be symmetrically aerated without evidence of mas s, infiltrate or effusion. The cardiomediastinal contours are unremarkable. Osseous structures are intact. Right chest port catheter is present in good position and is accessed CONCLUSION: No acute disease. Nicholas Weeks MD on July 14, 2017 at 20:25 Board Certified Radiologist. This report was verified electronically.
[2017-07-14] MEDS ORDERED: HYDROmorphone HCL PF 2 MG/ML VIAL IV PUSH ONE (20:30)
[2017-07-14 21:06] LABS: AUTOMATED NEUTROPHIL # 3.1 TH/MM3 (1.8-7.7); BASOPHIL % 0.3 % (0.0-2.0); EOSINOPHIL # 0.5 TH/MM3 (0-0.4); EOSINOPHIL % 5.7 % (0.0-4.0); HEMATOCRIT 30.1 % (35.0-46.0); HEMOGLOBIN 10.5 GM/DL (11.6-15.3); LYMPH % 54.3 % (9.0-44.0); MEAN CELL VOLUME 93.1 FL (80.0-100.0); MEAN CORPUSCULAR HEMOGLOBIN 32.4 PG (27.0-34.0); MEAN CORPUSCULAR HGB CONC 34.8 % (32.0-36.0); MEAN PLATELET VOLUME 9.2 FL (7.0-11.0); MONO % 5.6 % (0.0-8.0); MONOCYTE # 0.5 TH/MM3 (0-0.9); NEUT % 34.1 % (16.0-70.0); PLATELET COUNT 269 TH/MM3 (150-450); RED BLOOD COUNT 3.23 MIL/MM3 (4.00-5.30); RED CELL DISTRIBUTION WIDTH 13.7 % (11.6-17.2); WHITE BLOOD COUNT 9.2 TH/MM3 (4.0-11.0)
[2017-07-14 21:09] LABS: ALBUMIN 3.1 GM/DL (3.4-5.0); AST (GOT) 18 U/L (15-37); BICARBONATE 26.9 MEQ/L (21.0-32.0); BLOOD UREA NITROGEN 22 MG/DL (7-18); CALCIUM 8.6 MG/DL (8.5-10.1); CHLORIDE 106 MEQ/L (98-107); CREATININE 0.71 MG/DL (0.50-1.00); GLOMERULAR FILTRATION RATE 87 ML/MIN (>89); GLUCOSE,RANDOM 82 MG/DL (74-106); MAGNESIUM 1.9 MG/DL (1.5-2.5); SODIUM (NA) 140 MEQ/L (136-145)
[2017-07-14 21:11] LABS: ALT (GPT) 27 U/L (10-53)
[2017-07-14 21:14] LABS: ALKALINE PHOSPHATASE 80 U/L (45-117); TOTAL BILIRUBIN ADULT 0.1 MG/DL (0.2-1.0); TOTAL PROTEIN 6.6 GM/DL (6.4-8.2); TROPONIN I LESS THAN 0.02 NG/ML (0.02-0.05)
[2017-07-14 22:56] LABS: BILIRUBIN, URINE NEG (NEG); BLOOD, URINE NEG (NEG); GLUCOSE,URINE NEG (NEG); HYALINE CAST, URINE 4 /lpf (RARE); KETONE, URINE NEG (NEG); MUCUS URINE FEW /lpf (OCC); NITRITE,URINE NEG (NEG); PH, URINE 6.5 (5.0-8.5); URINE COLOR YELLOW (YELLW/STRAW); URINE LEUKOCYTE ESTERASE NEG (NEG)
--- NOTE | 2017-07-14 23:04 | RADRPT ---
EXAM DATE/TIME: 07/14/2017 22:39 [place] COMPARISON: No previous studies available for comparison. INDICATIONS : Headaches. RADIATION DOSE: 36/37 CTDIvol (mGy) MEDICAL HISTORY : Seizures. Crohns disease. Cervical cancer SURGICAL HISTORY : Cholecystectomy. Hysterectomy. ENCOUNTER: Initial ACUITY: 1 day PAIN SCALE: 10/10 LOCATION: Bilateral cranial TECHNIQUE: Multiple contiguous axial images were obtained of the head. Using automated exposure control and adj ustment of the mA and/or kV according to patient size, radiation dose was kept as low as reasonably a chievable to obtain optimal diagnostic quality images. DICOM format image data is available electro nically for review and comparison. FINDINGS: CEREBRUM: The ventricles are normal for age. No evidence of midline shift, mass lesion, hemorrhage or acute in farction. No extra-axial fluid collections are seen. POSTERIOR FOSSA: The cerebellum and brainstem are intact. The 4th ventricle is midline. The cerebellopontine angle i s unremarkable. EXTRACRANIAL: The visualized portion of the orbits is intact. SKULL: The calvaria is intact. No evidence of skull fracture. CONCLUSION: Normal examination. Nicholas Weeks MD on July 14, 2017 at 23:02 Board Certified Radiologist. This report was verified electronically.
--- NOTE | 2017-07-15 18:51 | EKG ---
Date Performed: 07/14/2017 Time Performed: 23:26:38 PTAGE: 52 years EKG: Sinus rhythm NORMAL ECG Since the prior tracing, there has been no significant change PREVIOUS TRACING : 06/03/2017 08.05 DOCTOR: Allyson Molina Interpretating Date/Time 07/15/2017 18:46:53
== END 2017-07-15 00:12 | disposition home or self-care (01) ==
LOC: NEPC 17:25
DX: B34.9 Viral infection, unspecified (principal); R51 Headache; M19.90 Unspecified osteoarthritis, unspecified site; J45.909 Unspecified asthma, uncomplicated; F31.9 Bipolar disorder, unspecified; F41.9 Anxiety disorder, unspecified; K50.90 Crohn's disease, unspecified, without complications; K21.9 Gastro-esophageal reflux disease without esophagitis; Z85.41 Personal history of malignant neoplasm of cervix uteri; Z86.14 Personal history of Methicillin resistant Staphylococcus aureus infection; Z86.718 Personal history of other venous thrombosis and embolism; Z79.01 Long term (current) use of anticoagulants; Z79.899 Other long term (current) drug therapy
CPT/HCPCS: 70450; 71045; 80053; 81001; 82550; 83605; 83690; 83735; 84484; 85025; 87040; 87804; 93005; 96361; 96374; 96375; 99285; J1170; J2405; J7030